=== PATIENT | female | born 1930 | race Caucasian/White ===

== ENCOUNTER 2017-01-28 16:43 | Inpatient (IN) | payer MEDICARE, MEDICAID ==
[2017-01-28] MEDS ORDERED: Sodium Chloride 0.9% 10 ML Syringe FLUSH PRN (17:08)
[2017-01-28] MEDS ORDERED: Sodium Chloride 0.9% 2.5 ML Syringe FLUSH PRN (17:08)
--- NOTE | 2017-01-28 17:10 | EDM.PDOC ---
ED HPI GENERAL MEDICAL PROBLEM - General Chief Complaint: Respiratory Problem Stated Complaint: UNK Time Seen by Provider: 01/28/17 17:00 - History of Present Illness INITIAL COMMENTS - FREE TEXT/NARRATIVE: HISTORY AND PHYSICAL: History of present illness: The patient is an 86-year-old female who resides at [facility] and has a history of Alzheimer's dementia and presents from [place] after having an episode of near fainting/near syncope while on the toilet .It was noted by nursing that she like she was going to faint or pass out and her oxygen level was low at that time and they thought she should be evaluated. Patient cannot offer any history as she is extremely hard of hearing and will not answer questions nor she a good historian. On arrival here she was 78% sat on room air and isn't placed on oxygen. Per the detention they tried to put oxygen on her and she ripped it off. Family is at bedside and state that she is at her baseline mental status and that is not new or different. The patient does respond to the family members questions and voice and answer simple questions. She states she's not having any pain or shortness of breath. She keeps repeatedly asking if she can take the oxygen off. According to the family she is either in the bed or in the wheelchair but is not ambulatory and she has a history of getting frequent UTIs. They state that when she gets a UTI she is more confused and doesn't recognize them but she is currently recognizing them. Further history is unavailable at this time but per the family and detention report she has not had a fever and she has been eating and otherwise appropriate until today. Review of systems: As per history of present illness and below otherwise all systems reviewed and negative. Past medical history: As per history of present illness and as reviewed below otherwise noncontributory. Surgical history: As per history of present illness and as reviewed below otherwise noncontributory. Social history: No reported history of drug or alcohol abuse. Family history: As per history of present illness and as reviewed below otherwise noncontributory. Physical exam: Gen.: Well-developed well-nourished female is very hard of hearing and selectively answers questions as she is able. Vital signs are noted by me and after oxygen was applied, 5 L per simple mask, O2 sat went from 78% to 96%. HEENT: Atraumatic, normocephalic, pupils reactive, negative for conjunctival pallor or scleral icterus, mucous membranes moist, throat clear, neck supple, nontender, trachea midline. Lungs: Clear to auscultation, breath sounds equal bilaterally, chest nontender. There is no work or breathing no stridor or wheezing and no sensory muscle use appreciated Heart: S1S2, regular rate and rhythm no overt murmurs are appreciated Abdomen: Soft, nondistended, bowel sounds are normoactive. There is tenderness in the right upper abdominal area without rebound or guarding Negative for masses or hepatosplenomegaly. Pelvis: Stable nontender. Genitourinary: Deferred. Rectal: Deferred. Extremities: Atraumatic, there is no pedal edema Neurovascular unremarkable. Neuro: Awake, alert, but only answers simple questions and depending on who is asking them will sometimes not answer questions. Full neuro exam is very challenging to the patient's lack of cooperation and inability, sensory grossly unremarkable throughout but again it is difficult to evaluate. Exam nonfocal Diagnostics: EKG CBC CMP lactic acid troponin UA TSH chest x-ray CT scan of the head abdomen and pelvis Therapeutics: IV O2 monitor I discussed with the daughter at bedside the patient's lab tests which include an elevated troponin. I have offered her transferred to [facility] for cardiology care on a more acute basis and intervention as indicated and she is declining that at this time. She says that she would prefer just medical management here and I will informed our hospitalist about this. We are pending at this time her chest x-ray and CAT scan results as well as a urine. Patient is currently stable and is not complaining of anything and keeps trying to take her oxygen off. 1900: Case was discussed with our hospitalist Dr. Garcia accepts the patient for inpatient care. He is aware of the troponin and of my conversation with the daughter and is in agreement. We are currently awaiting the urine results as well as chest x-ray and CT scans. Dr. Garcia will follow up these test results. Impression: Near syncope, new hypoxia, elevated troponin History of dementia Definitive disposition and diagnosis as appropriate pending reevaluation and review of above. - Related Data Allergies Allergy/AdvReac Type Severity Reaction Status Date / Time No Known Allergies Allergy Verified 01/28/17 16:54 Home Meds: Home Meds Acetaminophen [Tylenol Extra Strength] 500 mg PO Q8HR 01/28/17 [History] Aspirin 81 mg PO DAILY 01/28/17 [History] Citalopram Hydrobromide [Celexa] 10 mg PO DAILY 01/28/17 [History] Cyanocobalamin (Vitamin B-12) [Cyanocobalamin Injection] 1,000 mcg IM DAILY 03/04 [History] Docusate Sodium [Colace] 100 mg PO DAILY 01/28/17 [History] Donepezil HCl [Aricept] 10 mg PO DAILY 01/28/17 [History] Folic Acid 1 mg PO DAILY 01/28/17 [History] Magnesium Hydroxide [Milk of Magnesia] 30 ml PO DAILY 01/28/17 [History] Past Medical History HEENT History: Reports: None Cardiovascular History: Reports: None Respiratory History: Reports: None Gastrointestinal History: Reports: None Genitourinary History: Reports: UTI, Recurrent 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: Musculoskeletal History: Reports: Osteoarthritis Neurological History: Reports: Alzheimers Disease, Other (See Below) Other Neuro History: dementia Psychiatric History: Reports: Psychosis, Other (See Below) Other Psychiatric History: conversion disorder Endocrine/Metabolic History: Reports: None Hematologic History: Reports: Anemia Immunologic History: Reports: None Oncologic (Cancer) History: Reports: None Dermatologic History: Reports: None - Infectious Disease History Infectious Disease History: Reports: Chicken Pox, Shingles - Past Surgical History Head Surgeries/Procedures: Reports: None HEENT Surgical History: Reports: None Cardiovascular Surgical History: Reports: None Respiratory Surgical History: Reports: None GI Surgical History: Reports: None Female Surgical History: Reports: None Neurological Surgical History: Reports: None Musculoskeletal Surgical History: Reports: None Social & Family History - Family History Family Medical History: Noncontributory - Tobacco Use Smoking Status *Q: Never Smoker - Caffeine Use Caffeine Use: Reports: None - Recreational Drug Use Recreational Drug Use: No ED ROS GENERAL - Review of Systems Review Of Systems: ROS reveals no pertinent complaints other than HPI. ED EXAM, GENERAL - Physical Exam Exam: See Below (See dictation) Course - Vital Signs Last Recorded V/S: Last Vital Signs Temp 36.4 C 01/28/17 16:54 Pulse 91 01/28/17 16:54 Resp 16 01/28/17 16:54 BP 150/76 H 01/28/17 16:54 Pulse Ox 96 01/28/17 17:13 - Orders/Labs/Meds Orders: Active Orders 24 hr Category Date Time Status Patient Status [ADT] Stat ADT 01/28/17 19:11 Ordered Cardiac Monitoring [RC] . DIRECTED Care 01/28/17 17:08 Active EKG Documentation Completion [RC] STAT Care 01/28/17 17:08 Active Oxygen Therapy, ED [RC] ASDIRECTED Care 01/28/17 17:08 Active Pulse Oximetry [RC] ASDIRECTED Care 01/28/17 17:08 Active Abdomen Pelvis wo Cont [CT] Stat Exams 01/28/17 17:09 Taken Chest 1V Frontal [CR] Stat Exams 01/28/17 17:09 Taken Head wo Cont [CT] Stat Exams 01/28/17 17:09 Taken UA W/MICROSCOPIC [URIN] Stat Lab 01/28/17 17:09 Uncollected Sodium Chloride 0.9% [Saline Flush] Med 01/28/17 17:08 Active 10 ml FLUSH ASDIRECTED PRN Sodium Chloride 0.9% [Saline Flush] Med 01/28/17 17:08 Active 2.5 ml FLUSH ASDIRECTED PRN Saline Lock Insert [OM.PC] Stat Oth 01/28/17 17:08 Ordered Medication Orders Sodium Chloride (Saline Flush) 10 ml FLUSH ASDIRECTED PRN PRN Reason: Keep Vein Open Sodium Chloride (Saline Flush) 2.5 ml FLUSH ASDIRECTED PRN PRN Reason: Keep Vein Open Labs: Laboratory Tests 01/28/17 01/28/17 01/28/17 Range/Units 17:37 17:37 17:37 WBC 8.88 (4.0-11.0) K/uL RBC 4.44 (4.30-5.90) M/uL Hgb 14.9 (12.0-16.0) g/dL Hct 43.0 (36.0-46.0) % MCV 96.8 (80.0-98.0) fL MCH 33.6 H (27.0-32.0) pg MCHC 34.7 (31.0-37.0) g/dL RDW Std Deviation 47.5 (28.0-62.0) fl RDW Coeff of Gen 13 (11.0-15.0) % Plt Count 164 (150-400) K/uL MPV 11.20 (7.40-12.00) fL Neut % (Auto) 77.0 (48.0-80.0) % Lymph % (Auto) 12.2 L (16.0-40.0) % [place] % (Auto) 8.3 (0.0-15.0) % Eos % (Auto) 2.0 (0.0-7.0) % Baso % (Auto) 0.5 (0.0-1.5) % Neut # (Auto) 6.8 H (1.4-5.7) K/uL Lymph # (Auto) 1.1 (0.6-2.4) K/uL [place] # (Auto) 0.7 (0.0-0.8) K/uL Eos # (Auto) 0.2 (0.0-0.7) K/uL Baso # (Auto) 0.0 (0.0-0.1) K/uL Nucleated RBC % 0.0 /100WBC Nucleated RBCs # 0 K/uL Lactate 2.6 H (0.20-2.00) mmol/L Sodium 143 (136-146) mmol/L Potassium 3.9 (3.5-5.1) mmol/L Chloride 107 (98-110) mmol/L Carbon Dioxide 23 (21-31) mmol/L BUN 15 (6.0-23.0) mg/dL Creatinine 0.9 (0.6-1.5) mg/dL Est Cr Clr Drug Dosing 42.78 mL/min Estimated GFR (MDRD) 59.5 ml/min Glucose 136 H (60-110) mg/dL Calcium 9.1 (8.8-10.8) mg/dL Total Bilirubin 0.5 (0.1-1.5) mg/dL AST 22 (5-40) IU/L ALT 20 (8-54) IU/L Alkaline Phosphatase 58 (40-150) Troponin I 0.32 H* (0.0-0.29) NG/ML Total Protein 6.8 (6.0-8.0) g/dL Albumin 3.8 (3.4-4.8) g/dL Globulin 3.0 (2.0-3.5) g/dL Albumin/Globulin Ratio 1.3 (1.3-2.8) TSH 3rd Generation 2.98 (0.47-5.0) uIU/mL Meds: Medications Generic Name Dose Route Start Last Admin Trade Name Freq PRN Reason Stop Dose Admin Sodium Chloride 10 ml 01/28/17 17:08 Saline Flush FLUSH ASDIRECTED PRN Keep Vein Open Sodium Chloride 2.5 ml 01/28/17 17:08 Saline Flush FLUSH ASDIRECTED PRN Keep Vein Open Departure - Departure Time of Disposition: 19:17 Disposition: Admitted As Inpatient 67 Condition: Good Clinical Impression: Syncope, near, Hypoxia, Elevated troponin - Discharge Information Referrals: PCP,None [Primary Care Provider] - Forms: ED Department Discharge - My Orders Last 24 Hours: My Active Orders 01/28/17 17:08 Cardiac Monitoring [RC] . DIRECTED EKG Documentation Completion [RC] STAT Oxygen Therapy, ED [RC] ASDIRECTED Pulse Oximetry [RC] ASDIRECTED Sodium Chloride 0.9% [Saline Flush] 10 ml FLUSH ASDIRECTED PRN Sodium Chloride 0.9% [Saline Flush] 2.5 ml FLUSH ASDIRECTED PRN Saline Lock Insert [OM.PC] Stat 01/28/17 17:09 Abdomen Pelvis wo Cont [CT] Stat Chest 1V Frontal [CR] Stat Head wo Cont [CT] Stat UA W/MICROSCOPIC [URIN] Stat 01/28/17 19:11 Patient Status [ADT] Stat - Assessment/Plan Last 24 Hours: My Active Orders 01/28/17 17:08 Cardiac Monitoring [RC] . DIRECTED EKG Documentation Completion [RC] STAT Oxygen Therapy, ED [RC] ASDIRECTED Pulse Oximetry [RC] ASDIRECTED Sodium Chloride 0.9% [Saline Flush] 10 ml FLUSH ASDIRECTED PRN Sodium Chloride 0.9% [Saline Flush] 2.5 ml FLUSH ASDIRECTED PRN Saline Lock Insert [OM.PC] Stat 01/28/17 17:09 Abdomen Pelvis wo Cont [CT] Stat Chest 1V Frontal [CR] Stat Head wo Cont [CT] Stat UA W/MICROSCOPIC [URIN] Stat 01/28/17 19:11 Patient Status [ADT] Stat
--- NOTE | 2017-01-28 20:03 | PCM.HP ---
H&P History of Present Illness - General Date of Service: 01/28/17 Admit Problem/Dx: Admission Diagnosis/Problem Admission Diagnosis/Problem Syncope Source of Information: Patient - History of Present Illness Initial Comments - Free Text/Narative: She seemed to have a brief period of near syncope at the [place] home . At the time she was also noted to have a room air oxygen saturation of 75% approximately. No problems swallowing no known fever - Related Data Allergies/Adverse Reactions: Allergies Allergy/AdvReac Type Severity Reaction Status Date / Time No Known Allergies Allergy Verified 01/28/17 16:54 Home Medications: Home Meds Acetaminophen [Tylenol Extra Strength] 500 mg PO Q8HR 01/28/17 [History] Aspirin 81 mg PO DAILY 01/28/17 [History] Citalopram Hydrobromide [Celexa] 10 mg PO DAILY 01/28/17 [History] Cyanocobalamin (Vitamin B-12) [Cyanocobalamin Injection] 1,000 mcg IM DAILY 03/04 [History] Docusate Sodium [Colace] 100 mg PO DAILY 01/28/17 [History] Donepezil HCl [Aricept] 10 mg PO DAILY 01/28/17 [History] Folic Acid 1 mg PO DAILY 01/28/17 [History] Magnesium Hydroxide [Milk of Magnesia] 30 ml PO DAILY 01/28/17 [History] Past Medical History HEENT History: Reports: None Cardiovascular History: Reports: None Respiratory History: Reports: None Gastrointestinal History: Reports: None Genitourinary History: Reports: UTI, Recurrent 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: Musculoskeletal History: Reports: Osteoarthritis Neurological History: Reports: Alzheimers Disease, Other (See Below) Other Neuro History: dementia Psychiatric History: Reports: Psychosis, Other (See Below) Other Psychiatric History: conversion disorder Endocrine/Metabolic History: Reports: None Hematologic History: Reports: Anemia Immunologic History: Reports: None Other Oncologic History: prior history of breast cancer treated with lumpectomy Dermatologic History: Reports: None - Infectious Disease History Infectious Disease History: Reports: Chicken Pox, Shingles - Past Surgical History Head Surgeries/Procedures: Reports: None HEENT Surgical History: Reports: None Cardiovascular Surgical History: Reports: None Respiratory Surgical History: Reports: None GI Surgical History: Reports: None Female Surgical History: Reports: None, Other (See Below) (breast lumpectomy for cancer) Neurological Surgical History: Reports: None Musculoskeletal Surgical History: Reports: None Social & Family History - Family History Family Medical History: Noncontributory - Tobacco Use Smoking Status *Q: Never Smoker - Caffeine Use Caffeine Use: Reports: None - Recreational Drug Use Recreational Drug Use: No H&P Review of Systems - Review of Systems: Review Of Systems: See Below General: Denies: Fever Pulmonary: Denies: Cough Cardiovascular: Denies: Chest Pain Gastrointestinal: Denies: Abdominal Pain, Black Stool, Bloody Stool, Hematemesis , Hematochezia Genitourinary: Denies: Dysuria, Hematuria Neurological: Reports: Confusion (chronic) Exam - Exam Exam: See Below - Vital Signs Vital Signs: Last Vital Signs Temp 97.6 F 01/28/17 16:54 Pulse 95 01/28/17 19:54 Resp 19 01/28/17 19:54 BP 148/64 H 01/28/17 19:54 Pulse Ox 94 L 01/28/17 19:54 Weight: 83.733 kg - Exam General: Alert. No: Lethargic HEENT: EOMI Neck: Supple, Trachea Midline Lungs: Clear to Auscultation, Normal Respiratory Effort Cardiovascular: Regular Rate, Regular Rhythm GI/Abdominal Exam: Soft, Non-Tender (Female) Exam: Deferred Rectal (Female) Exam: Deferred Neurological: Cranial Nerves Intact Psychiatric: Alert (she appears frightened; she has hypertonus diffusely and has intermittent RUE tremor at 4-5 Hz; she has clonus at the right wrist noted.) - Patient Data Lab Results Last 24 hrs: Laboratory Results - last 24 hr 01/28/17 Range/Units 19:25 Urine Color YELLOW Urine Appearance CLOUDY Urine pH 6.5 (5.0-8.0) Ur Specific [place] 1.015 (1.001-1.035) Urine Protein NEGATIVE (NEGATIVE) mg/dL Urine Glucose (UA) NEGATIVE (NEGATIVE) mg/dL Urine Ketones NEGATIVE (NEGATIVE) mg/dL Urine Occult Blood SMALL H (NEGATIVE) Urine Nitrite POSITIVE H (NEGATIVE) Urine Bilirubin NEGATIVE (NEGATIVE) Urine Urobilinogen 0.2 (<2.0) EU/dL Ur Leukocyte Esterase LARGE (NEGATIVE) Urine RBC 0-4 (0-2/HPF) Urine WBC TO NUMEROUS TO COUNT H (0-5/HPF) Ur Epithelial Cells OCCASIONAL (NONE-FEW) Urine Bacteria 2+ H (NEGATIVE) Result Diagrams: 01/28/17 17:37 01/28/17 17:37 *Q Meaningful Use (ADM) - VTE *Q VTE Criteria *Q: - Stroke *Q Stroke Criteria *Q: - AMI *Q AMI Criteria *Q: - Problem List (1) Dementia SNOMED Code(s): 66012788 Status: Acute Current Visit: Yes (2) Bone metastases Status: Acute Current Visit: Yes (3) UTI (urinary tract infection) SNOMED Code(s): 65126606 ICD Code: N39.0 - URINARY TRACT INFECTION, SITE NOT SPECIFIED Status: Acute Current Visit: Yes (4) Sepsis SNOMED Code(s): 30716719 ICD Code: A41.9 - SEPSIS, UNSPECIFIED ORGANISM Status: Acute Current Visit: Yes (5) Cholelithiasis SNOMED Code(s): 749540069 ICD Code: K80.20 - CALCULUS OF GALLBLADDER W/O CHOLECYSTITIS W/O OBSTRUCTION Status: Acute Current Visit: Yes (6) Syncope, near SNOMED Code(s): 626033989 ICD Code: R55 - SYNCOPE AND COLLAPSE Status: Acute Current Visit: Yes (7) Hypoxia SNOMED Code(s): 689147650 ICD Code: R09.02 - HYPOXEMIA Status: Acute Current Visit: Yes (8) Elevated troponin SNOMED Code(s): 117947570 ICD Code: R74.8 - ABNORMAL LEVELS OF OTHER SERUM ENZYMES Status: Acute Current Visit: Yes (9) Do not resuscitate Status: Acute Current Visit: Yes Problem List Initiated/Reviewed/Updated: Yes Orders Last 24hrs: Active Orders 24 hr Category Date Time Status Patient Status [ADT] Stat ADT 01/28/17 19:18 Active CULTURE URINE [RM] Stat Lab 01/28/17 19:44 Uncollected Cefepime [Maxipime in D5W 1 GM/50 ML] 1 gm Med 01/28/17 20:00 Ordered Premix Bag 1 bag IV Q8H Medication Orders Cefepime HCl 1 gm/ Premix 50 mls @ 100 mls/hr IV Q8H PEPITO Sodium Chloride (Saline Flush) 10 ml FLUSH ASDIRECTED PRN PRN Reason: Keep Vein Open Sodium Chloride (Saline Flush) 2.5 ml FLUSH ASDIRECTED PRN PRN Reason: Keep Vein Open Assessment/Plan Comment:: 01/28/2017 CT head shows marked atrophy CT abdomen shows possible metastatic disease in the pelvis; this is uncertain. I suspect that she has urosepsis cefepime supportive care I had a detailed discussion with the patient's daughter regarding the diagnoses and specific the elevated troponin and the possibility of bone metastases. She understands that her prognosis is guarded and that she may be in the midst of a myocardial infarction. However, only non aggressive measures are planned. Will not pursue the work u p for possible metastatic disease and will not treat possible IA except medically. DNR/ DNI status confirmed.
[2017-01-28] MEDS ORDERED: Ondansetron 4 MG/2 ML SDV IVPUSH PRN (20:07)
[2017-01-28] MEDS ORDERED: Temazepam 15 MG Cap PO PRN (20:07)
[2017-01-28] MEDS ORDERED: Acetaminophen 325 MG Tab PO PRN (20:07)
[2017-01-28] MEDS: Cefepime 1 GM in Premix Bag 1 BAG IV SCH (20:18)
[2017-01-28] MEDS: Docusate Sodium 100 MG Cap PO SCH ×2 (21:30→21:45)
[2017-01-28] MEDS: Sodium Chloride 0.9% 1,000 ML IV SCH (21:54)
[2017-01-29] MEDS: Cefepime 1 GM in Premix Bag 1 BAG IV SCH (04:17)
[2017-01-29 05:31] LABS: CHLORIDE,CL 111 mmol/L (98-110); SODIUM,NA 140 mmol/L (136-146)
[2017-01-29] MEDS: Docusate Sodium 100 MG Cap PO SCH ×3 (08:21→21:19)
[2017-01-29] MEDS: Donepezil 10 MG Tab PO SCH ×2 (08:22→08:25)
[2017-01-29] MEDS: Folic Acid 1 MG Tab PO SCH ×2 (08:22→08:26)
[2017-01-29] MEDS: Aspirin 81 MG Tab.Chew PO SCH ×2 (08:22→08:26)
[2017-01-29] MEDS: Magnesium Hydroxide 400 MG/5 ML Susp 30 ML Cup PO SCH (08:26)
[2017-01-29] MEDS: Sodium Chloride 0.9% 1,000 ML IV SCH ×2 (08:31→19:56)
[2017-01-29] MEDS ORDERED: CITALOPRAM HYDROBROMIDE 10 MG PO SCH (09:00)
[2017-01-29] MEDS: Citalopram 20 MG Tab PO SCH (09:18)
--- NOTE | 2017-01-29 10:31 | PCM.PN ---
- General Info Date of Service: 01/29/17 Admission Dx/Problem (Free Text): Admission Diagnosis/Problem Admission Diagnosis/Problem Syncope Subjective Update: Sitting up in chair. Has dementia, hard to obtain any ROS. - Patient Data Vitals - Most Recent: Last Vital Signs Temp 98.5 F 01/29/17 08:00 Pulse 83 01/29/17 08:00 Resp 20 01/29/17 08:00 BP 134/78 01/29/17 08:00 Pulse Ox 90 L 01/29/17 08:00 Weight - Most Recent: 83.733 kg I&O - Last 24 Hours: Intake & Output 01/28/17 01/29/17 01/29/17 22:59 06:59 14:59 Intake Total 755 Output Total 371 Balance 384 Lab Results Last 24 Hours: Laboratory Results - last 24 hr 01/28/17 01/29/17 01/29/17 Range/Units 19:25 04:35 04:35 WBC 9.61 (4.0-11.0) K/uL RBC 4.19 L (4.30-5.90) M/uL Hgb 13.9 (12.0-16.0) g/dL Hct 40.4 (36.0-46.0) % MCV 96.4 (80.0-98.0) fL MCH 33.2 H (27.0-32.0) pg MCHC 34.4 (31.0-37.0) g/dL RDW Std Deviation 47.0 (28.0-62.0) fl RDW Coeff of Gen 13 (11.0-15.0) % Plt Count 145 L (150-400) K/uL MPV 11.10 (7.40-12.00) fL Neut % (Auto) 75.3 (48.0-80.0) % Lymph % (Auto) 15.3 L (16.0-40.0) % [place] % (Auto) 8.1 (0.0-15.0) % Eos % (Auto) 1.1 (0.0-7.0) % Baso % (Auto) 0.2 (0.0-1.5) % Neut # (Auto) 7.2 H (1.4-5.7) K/uL Lymph # (Auto) 1.5 (0.6-2.4) K/uL [place] # (Auto) 0.8 (0.0-0.8) K/uL Eos # (Auto) 0.1 (0.0-0.7) K/uL Baso # (Auto) 0.0 (0.0-0.1) K/uL Nucleated RBC % 0.0 /100WBC Nucleated RBCs # 0 K/uL Lactate 1.5 (0.20-2.00) mmol/L Sodium (136-146) mmol/L Potassium (3.5-5.1) mmol/L Chloride (98-110) mmol/L Carbon Dioxide (21-31) mmol/L BUN (6.0-23.0) mg/dL Creatinine (0.6-1.5) mg/dL Est Cr Clr Drug Dosing mL/min Estimated GFR (MDRD) ml/min Glucose (60-110) mg/dL Calcium (8.8-10.8) mg/dL Magnesium (1.5-2.3) mEq/L Total Bilirubin (0.1-1.5) mg/dL AST (5-40) IU/L ALT (8-54) IU/L Alkaline Phosphatase (40-150) Troponin I (0.0-0.29) NG/ML Total Protein (6.0-8.0) g/dL Albumin (3.4-4.8) g/dL Globulin (2.0-3.5) g/dL Albumin/Globulin Ratio (1.3-2.8) Urine Color YELLOW Urine Appearance CLOUDY Urine pH 6.5 (5.0-8.0) Ur Specific [place] 1.015 (1.001-1.035) Urine Protein NEGATIVE (NEGATIVE) mg/dL Urine Glucose (UA) NEGATIVE (NEGATIVE) mg/dL Urine Ketones NEGATIVE (NEGATIVE) mg/dL Urine Occult Blood SMALL H (NEGATIVE) Urine Nitrite POSITIVE H (NEGATIVE) Urine Bilirubin NEGATIVE (NEGATIVE) Urine Urobilinogen 0.2 (<2.0) EU/dL Ur Leukocyte Esterase LARGE (NEGATIVE) Urine RBC 0-4 (0-2/HPF) Urine WBC TO NUMEROUS TO COUNT H (0-5/HPF) Ur Epithelial Cells OCCASIONAL (NONE-FEW) Urine Bacteria 2+ H (NEGATIVE) 01/29/17 Range/Units 04:35 WBC (4.0-11.0) K/uL RBC (4.30-5.90) M/uL Hgb (12.0-16.0) g/dL Hct (36.0-46.0) % MCV (80.0-98.0) fL MCH (27.0-32.0) pg MCHC (31.0-37.0) g/dL RDW Std Deviation (28.0-62.0) fl RDW Coeff of Gen (11.0-15.0) % Plt Count (150-400) K/uL MPV (7.40-12.00) fL Neut % (Auto) (48.0-80.0) % Lymph % (Auto) (16.0-40.0) % [place] % (Auto) (0.0-15.0) % Eos % (Auto) (0.0-7.0) % Baso % (Auto) (0.0-1.5) % Neut # (Auto) (1.4-5.7) K/uL Lymph # (Auto) (0.6-2.4) K/uL [place] # (Auto) (0.0-0.8) K/uL Eos # (Auto) (0.0-0.7) K/uL Baso # (Auto) (0.0-0.1) K/uL Nucleated RBC % /100WBC Nucleated RBCs # K/uL Lactate (0.20-2.00) mmol/L Sodium 140 (136-146) mmol/L Potassium 3.8 (3.5-5.1) mmol/L Chloride 111 H (98-110) mmol/L Carbon Dioxide 19 L (21-31) mmol/L BUN 12 (6.0-23.0) mg/dL Creatinine 0.8 (0.6-1.5) mg/dL Est Cr Clr Drug Dosing 48.39 mL/min Estimated GFR (MDRD) > 60.0 ml/min Glucose 106 (60-110) mg/dL Calcium 8.6 L (8.8-10.8) mg/dL Magnesium 1.5 (1.5-2.3) mEq/L Total Bilirubin 0.6 (0.1-1.5) mg/dL AST 20 (5-40) IU/L ALT 17 (8-54) IU/L Alkaline Phosphatase 51 (40-150) Troponin I 0.80 H* (0.0-0.29) NG/ML Total Protein 6.0 (6.0-8.0) g/dL Albumin 3.4 (3.4-4.8) g/dL Globulin 2.6 (2.0-3.5) g/dL Albumin/Globulin Ratio 1.3 (1.3-2.8) Urine Color Urine Appearance Urine pH (5.0-8.0) Ur Specific [place] (1.001-1.035) Urine Protein (NEGATIVE) mg/dL Urine Glucose (UA) (NEGATIVE) mg/dL Urine Ketones (NEGATIVE) mg/dL Urine Occult Blood (NEGATIVE) Urine Nitrite (NEGATIVE) Urine Bilirubin (NEGATIVE) Urine Urobilinogen (<2.0) EU/dL Ur Leukocyte Esterase (NEGATIVE) Urine RBC (0-2/HPF) Urine WBC (0-5/HPF) Ur Epithelial Cells (NONE-FEW) Urine Bacteria (NEGATIVE) Med Orders - Current: Current Medications Acetaminophen (Tylenol) 650 mg PO Q4H PRN PRN Reason: Pain (Mild 1-3)/fever Aspirin (Aspirin) 81 mg PO DAILY [facility] Last Admin: 01/29/17 08:26 Dose: Not Given Citalopram Hydrobromide (Celexa) 10 mg PO DAILY [facility] Last Admin: 01/29/17 09:18 Dose: 10 mg Docusate Sodium (Colace) 100 mg PO BID [facility] Last Admin: 01/29/17 08:24 Dose: Not Given Donepezil HCl (Aricept) 10 mg PO DAILY [facility] Last Admin: 01/29/17 08:25 Dose: Not Given Folic Acid (Folic Acid) 1 mg PO DAILY [facility] Last Admin: 01/29/17 08:26 Dose: Not Given Sodium Chloride (Normal Saline) 1,000 mls @ 100 mls/hr IV ASDIRECTED [facility] Last Admin: 01/29/17 08:31 Dose: 100 mls/hr Ceftriaxone Sodium/Dextrose 1 (gm/ Premix) 50 mls @ 100 mls/hr IV Q24H [facility] Magnesium Hydroxide (Milk Of Magnesia) 30 ml PO DAILY [facility] Last Admin: 01/29/17 08:26 Dose: 30 ml Ondansetron HCl (Zofran) 4 mg IVPUSH Q4H PRN PRN Reason: Nausea Sodium Chloride (Saline Flush) 10 ml FLUSH ASDIRECTED PRN PRN Reason: Keep Vein Open Sodium Chloride (Saline Flush) 2.5 ml FLUSH ASDIRECTED PRN PRN Reason: Keep Vein Open Temazepam (Restoril) 15 mg PO BEDTIME PRN PRN Reason: Sleep Discontinued Medications Cefepime HCl 1 gm/ Premix 50 mls @ 100 mls/hr IV Q8H [facility] Last Admin: 01/29/17 04:17 Dose: 100 mls/hr Non-Formulary Medication (Citalopram Hydrobromide) 10 mg PO DAILY [facility] Last Admin: 01/29/17 08:25 Dose: Not Given - Exam General: Alert, Cooperative, No Acute Distress. No: Oriented Lungs: Clear to Auscultation, Normal Respiratory Effort Cardiovascular: Regular Rate, Regular Rhythm GI/Abdominal Exam: Normal Bowel Sounds, Soft, Non-Tender, No Organomegaly, No Distention, No Abnormal Bruit, No Mass, Pelvis Stable Extremities: Normal Inspection, Normal Range of Motion, Non-Tender, No Pedal Edema Neurological: No New Focal Deficit - Problem List & Annotations (1) Sepsis SNOMED Code(s): 06773324 Code(s): A41.9 - SEPSIS, UNSPECIFIED ORGANISM Status: Acute Current Visit : Yes (2) UTI (urinary tract infection) SNOMED Code(s): 47354711 Code(s): N39.0 - URINARY TRACT INFECTION, SITE NOT SPECIFIED Status: Acute Current Visit: Yes Qualifiers: Urinary tract infection type: acute cystitis Hematuria presence: without hematuria Qualified Code(s): N30.00 - Acute cystitis without hematuria (3) Bone metastases Status: Acute Current Visit: Yes (4) Elevated troponin SNOMED Code(s): 883299115 Code(s): R74.8 - ABNORMAL LEVELS OF OTHER SERUM ENZYMES Status: Acute Current Visit: Yes (5) Hypoxia SNOMED Code(s): 990364555 Code(s): R09.02 - HYPOXEMIA Status: Acute Current Visit: Yes (6) Syncope, near SNOMED Code(s): 577815658 Code(s): R55 - SYNCOPE AND COLLAPSE Status: Acute Current Visit: Yes (7) Dementia SNOMED Code(s): 81967655 Code(s): F03.90 - UNSPECIFIED DEMENTIA WITHOUT BEHAVIORAL DISTURBANCE Status: Chronic Current Visit: Yes - Problem List Review Problem List Initiated/Reviewed/Updated: Yes - My Orders Last 24 Hours: My Active Orders 01/29/17 15:00 cefTRIAXone [Rocephin in Dextrose,Iso-Osm 1 GM/50 ML] 1 gm Premix Bag 1 bag IV Q24H - Plan Plan:: This 86 year old female admited with near syncope, found to have UTI and elevated troponin. 1. Urosepsis: Sepsis improved/resolved. VS stable, afebrile. Lactate now 1.5 with hydration. Patient is alert. Will change Cefepime to Rocephin. Will await BC and UC, which are still pending. Continue NS 100, patient not eating much and spitting out all pills. 2. Elevated troponin: Palliative care. Daughter has requested this and does not seek to treat/transfer, only comfort measures. Troponin elevated to .80 this morning. Patient denies chest pain. May be related to demand ischemia from hypoxic event and near syncope. 3. Possible metastatic disease: Family requests no further work up of this. 4. Dementia: Continue Aricept. VTE prophylaxis: SCDs Dispo: Possible DC back to [facility] in am, once UC results available.
[2017-01-29] MEDS ORDERED: cefTRIAXone 1 GM in Premix Bag 1 BAG IV SCH (15:00)
--- NOTE | 2017-01-29 16:21 | CT ---
EXAM DATE: 01/28/17 PATIENT'S AGE: 86 Patient: SAURABH CAMPUZANO Facility: [place], [place] Site . Site : 1930 Study: CT Head [id number]/12/2017 6:28:50 PM Ordering Physician: Charlotte Sal Final Report: INDICATION: Pain. Technique: CT head without IV contrast. Comparison: CT head 11/01/2010. Findings: Minimal mucosal thickening in ethmoidal sinuses. Deformity of the upper cervical spine may be related to advanced degenerative change and/or prior trauma. Moderate dilatation of the ventricular system has increased mildly and is greater than the degree of atrophy and could be related to underlying hydrocephalus and is greatest in the lateral ventricles right greater than left. Moderate cerebral atrophy has progressed. Milder cerebellar atrophy. No intracranial hemorrhage, edema or mass effect. Mild to moderate small vessel ischemic disease has progressed. Remainder negative. Impression: No acute intracranial disease. Progression of chronic intracranial disease including increase in ventricular dilatation likely related to a component of hydrocephalus. Progression of atrophy and small vessel ischemic disease. Other findings as above. Please note that all CT scans at this facility use dose modulation, iterative reconstruction, and/or weight-based dosing when appropriate to reduce radiation dose to as low as reasonably achievable. Dictated by Roni Teresa MD @ Jan 28 2017 6:54PM (Electronic Signature) Report Signed by Proxy. [facility]ITAL[facility]
--- NOTE | 2017-01-29 16:22 | CT ---
EXAM DATE: 01/28/17 PATIENT'S AGE: 86 Patient: SAURABH CAMPUZANO Facility: [place], [place] Site . Site : 1930 Study: CT Abdomen/Pelvis [id number]/12/2017 6:36:09 PM Ordering Physician: Charlotte Sal Final Report: INDICATION: Pain. Technique: CT abdomen pelvis without oral IV contrast. Findings: Moderate motion artifact. Marked compression T11 vertebral body may be acute. Marked osteopenia. Moderate anterior subluxation of L5 on S1 due to bilateral pars defects. Scattered degenerative disc disease in the lumbar and thoracic spine. Moderate degenerative arthritis both hips. Moderate vascular calcifications. Atelectasis or scarring in the lung bases few tiny nodules in the right lower lobe difficult to characterize given the significant motion artifact. Multiple focal lucencies involving the pelvic bones more focal than typically seen related to osteopenia and cannot exclude the possibility of infiltrative lesions such as neoplasm. If clinically desired these findings could be correlated to pelvic MRI. Small amount of pericardial fluid. Small stones in the dependent aspect the gallbladder. The left renal pelvis and intrarenal collecting system are slightly dilated with some superimposed parapelvic and cortical cysts in the left kidney. Fluid in the lumbar back posterior subcutaneous tissues. Mild thickening of both adrenal glands consistent with hyperplasia. Mild prominent of the right renal pelvis chronic. Colonic diverticulosis. Hysterectomy. Wall of the sigmoid colon is thickened likely related to underlying diverticulosis. Remainder negative. Impression: 1. Moderate compression involving the T11 vertebral body may be acute. 2. Ill-defined lucency in the skeleton which is more focal and patchy than typically seen related to osteopenia in the pelvic bones raising the suspicion of lucent/lytic lesions and neoplasm. Consider correlation with pelvic MRI to assess the pelvic bones to ensure there are not focal lesions. 3. Moderate motion artifact. 4. Colonic diverticulosis. 5. Hysterectomy. 6. The left internal collecting system and renal pelvis is slightly dilated as is the right renal pelvis. I suspect these findings are chronic. 7. Cholelithiasis there is Other findings as above. Please note that all CT scans at this facility use dose modulation, iterative reconstruction, and/or weight-based dosing when appropriate to reduce radiation dose to as low as reasonably achievable. Dictated by Roni Teresa MD @ Jan 28 2017 7:17PM (Electronic Signature) Report Signed by Proxy. JORGE ALBERTO
--- NOTE | 2017-01-29 16:23 | CR ---
EXAM DATE: 01/28/17 PATIENT'S AGE: 86 Patient: SAURABH CAMPUZANO Facility: [place], [place] Site . Site : 1930 Study: XRay Chest [id number]/12/2017 6:36:13 PM Ordering Physician: Charlotte Sal Final Report: INDICATION: Chest pain shortness of breath TECHNIQUE: Chest radiograph 1 view COMPARISON: 10/30/10 FINDINGS: Cardiovascular and mediastinum: The cardiac silhouette is normal in appearance and size. Mediastinum is within normal limits. Lungs and pleural spaces: Both lungs are unremarkable in appearance with small lung volumes. No sign of pleural effusion. No pneumothorax is seen. Bones and soft tissues: No significant findings. Left axillary dissection clips noted. IMPRESSION: 1. No acute cardiopulmonary disease seen. Dictated by: Ramos Medellin MD @ 01/28/2017 19:12:04 (Electronic Signature) Report Signed by Proxy. JORGE ALBERTO
[2017-01-30 06:06] LABS: CHLORIDE,CL 110 mmol/L (98-110); SODIUM,NA 140 mmol/L (136-146)
[2017-01-30] MEDS: Sodium Chloride 0.9% 1,000 ML IV SCH (06:28)
[2017-01-30] MEDS ORDERED: Albuterol/Ipratropium 3.0-0.5 MG/3 ML Neb Soln NEB ONE (08:51)
[2017-01-30] MEDS: Docusate Sodium 100 MG Cap PO SCH (08:54)
[2017-01-30] MEDS: Citalopram 20 MG Tab PO SCH (08:54)
[2017-01-30] MEDS: Folic Acid 1 MG Tab PO SCH (08:54)
[2017-01-30] MEDS: Donepezil 10 MG Tab PO SCH (08:54)
[2017-01-30] MEDS: Aspirin 81 MG Tab.Chew PO SCH (08:54)
--- NOTE | 2017-01-30 08:54 | PCM.DCSUM1 ---
Discharge Summary - Hospital Course Brief History: This 86-year-old female with pmh of Alzheimer's dementia, who resides at [place] presents from [place] after having an episode of near fainting/ near syncope while on the toilet. It was noted by nursing that she acted like she was going to faint or pass out and her oxygen level was low at that time, approximately 75% and they thought she should be evaluated. On arrival to ED she was 78% sat on room air and no oxygen dependent. Per the long term they tried to put oxygen on her and she ripped it off. Family is at bedside and state that she is at her baseline mental status and that is not new or different. The patient does respond to the family members questions and voice and answer simple questions. She reported no pain or shortness of breath. She keeps repeatedly asking if she can take the oxygen off. According to the family she is either in the bed or in the wheelchair but is not ambulatory and she has a history of getting frequent UTIs. They state that when she gets a UTI she is more confused and doesn't recognize them but she is currently recognizing them. In the ED no leukocytosis noted, lactate was 2.6, BMP WNL, troponin was 0.32, Ua +2 bacteria with too numerous to count WBC, + nitrite and large leukocyte esterase. She was admitted with urosepsis. - Discharge Data Discharge Date: 01/30/17 Discharge Disposition: DC/Tfer to [facility] [place] [facility] Condition: Good - Discharge Diagnosis/Problem(s) (1) Sepsis SNOMED Code(s): 19777044 ICD Code: A41.9 - SEPSIS, UNSPECIFIED ORGANISM Status: Acute (2) UTI (urinary tract infection) SNOMED Code(s): 47361374 ICD Code: N39.0 - URINARY TRACT INFECTION, SITE NOT SPECIFIED Status: Acute Qualifiers: Urinary tract infection type: acute cystitis Hematuria presence: without hematuria Qualified Code(s): N30.00 - Acute cystitis without hematuria (3) Bone metastases Status: Acute (4) Elevated troponin SNOMED Code(s): 021941305 ICD Code: R74.8 - ABNORMAL LEVELS OF OTHER SERUM ENZYMES Status: Acute (5) Hypoxia SNOMED Code(s): 167207596 ICD Code: R09.02 - HYPOXEMIA Status: Acute (6) Syncope, near SNOMED Code(s): 853238492 ICD Code: R55 - SYNCOPE AND COLLAPSE Status: Acute (7) Dementia SNOMED Code(s): 43483332 ICD Code: F03.90 - UNSPECIFIED DEMENTIA WITHOUT BEHAVIORAL DISTURBANCE Status: Chronic - Patient Instructions Diet: Regular Diet as Tolerated Activity: As Tolerated Showering/Bathing: May Shower Notify Provider of: Fever, Increased Pain, Swelling and Redness, Drainage, Nausea and/or Vomiting Other/Special Instructions: PT/OT/ST to evaluate and treat. Oxygen 2 L NC PRN for sats <88% - Discharge Plan Prescriptions/Med Rec: Cefdinir 300 mg PO BID #14 capsule Home Medications: Home Meds Acetaminophen [Tylenol Extra Strength] 1,000 mg PO Q8HR PRN MDD 4000 MG [History] Aspirin 81 mg PO DAILY 01/28/17 [History] Citalopram Hydrobromide [Celexa] 10 mg PO DAILY 01/28/17 [History] Cyanocobalamin (Vitamin B-12) [Cyanocobalamin Injection] 1,000 mcg IM Q30D 01/28 [History] Docusate Sodium [Colace] 100 mg PO DAILY 01/28/17 [History] Donepezil HCl [Aricept] 10 mg PO DAILY 01/28/17 [History] Folic Acid 1 mg PO DAILY 01/28/17 [History] Magnesium Hydroxide [Milk of Magnesia] 30 ml PO Q72H PRN 01/28/17 [History] Acetaminophen [Tylenol Extra Strength] 500 mg PO DAILY MDD 4000 MG 01/29/17 [ History] Cholecalciferol (Vitamin D3) [Vitamin D3] 1,000 units PO DAILY 01/29/17 [History ] Multivitamin with Minerals [Multiple Vitamin] 1 tab PO DAILY 01/29/17 [History] Cefdinir 300 mg PO BID #14 capsule 01/30/17 [Rx] Patient Handouts: Cefdinir capsules, Syncope, [id number] Referrals: Matt Arreguin MD [Physician] - 02/05/17 () - Discharge Summary/Plan Comment DC Time >30 min.: No Discharge Summary/Plan Comment: Discharge Diagnoses: E coli UTI Urosepsis resolved Possible Metastatic disease, unknown source Possible OH, possible demand ischemia Alzheimer's dementia Patricia was admitted and initially treated with Cefepime, which was de-escalated to Rocephin for Urosepsis. No leukocytosis noted during stay and she remained afebrile. Patient remains confused as per baseline and is alert today. E coli resistant to Cipro and Levaquin returned on urine culture. I will send her home today woth Cefdinir 300 mg BID for 7 more days. On admission, troponin was noted to be elevated, it peaked at 0.80 day 2 of admission and then normalized today 0.24. Melvina, daughter and POA was present on admission and declined wanting further work up. No further workup was completed for possible OH or demend ischemia. She was placed on palliative care for possible OH, no new medications started. On CT there were questional lesions in the pelvic bones, possibly metastatic disease, daughter again decline further work up. Today I notified Melvina Glover, daughter of discharge back to [place] and she agrees with this. Patricia is to return to ED or clinic if concerns should arise. Dr. Arreguin will be notified and it will be arranged for follow up in 1 week. - General Info Date of Service: 01/30/17 Admission Dx/Problem (Free Text: Admission Diagnosis/Problem Admission Diagnosis/Problem Syncope Subjective Update: Sitting up in chair, being fed breakfast by nursing. Denies pain. Confused at baseline. unable to get full ROS. Functional Status: Reports: Pain Controlled, Tolerating Diet, Ambulating, Urinating - Review of Systems General: Reports: Fever - Patient Data Vitals - Most Recent: Last Vital Signs Temp 97.4 F 01/30/17 00:00 Pulse 80 01/30/17 00:00 Resp 18 01/30/17 00:00 BP 159/76 H 01/30/17 00:00 Pulse Ox 90 L 01/30/17 00:00 Weight - Most Recent: 83.733 kg I&O - Last 24 hours: Intake & Output 01/29/17 01/30/17 01/30/17 22:59 06:59 14:59 Intake Total 1710 1521 Balance 1710 1521 Lab Results - Last 24 hrs: Laboratory Results - last 24 hr 01/30/17 01/30/17 Range/Units 05:38 05:38 WBC 9.85 (4.0-11.0) K/uL RBC 3.90 L (4.30-5.90) M/uL Hgb 13.1 (12.0-16.0) g/dL Hct 37.4 (36.0-46.0) % MCV 95.9 (80.0-98.0) fL MCH 33.6 H (27.0-32.0) pg MCHC 35.0 (31.0-37.0) g/dL RDW Std Deviation 47.1 (28.0-62.0) fl RDW Coeff of Gen 14 (11.0-15.0) % Plt Count 132 L (150-400) K/uL MPV 11.20 (7.40-12.00) fL Neut % (Auto) 74.0 (48.0-80.0) % Lymph % (Auto) 14.8 L (16.0-40.0) % [place] % (Auto) 8.7 (0.0-15.0) % Eos % (Auto) 1.8 (0.0-7.0) % Baso % (Auto) 0.7 (0.0-1.5) % Neut # (Auto) 7.3 H (1.4-5.7) K/uL Lymph # (Auto) 1.5 (0.6-2.4) K/uL [place] # (Auto) 0.9 H (0.0-0.8) K/uL Eos # (Auto) 0.2 (0.0-0.7) K/uL Baso # (Auto) 0.1 (0.0-0.1) K/uL Nucleated RBC % 0.0 /100WBC Nucleated RBCs # 0 K/uL Sodium 140 (136-146) mmol/L Potassium 3.5 (3.5-5.1) mmol/L Chloride 110 (98-110) mmol/L Carbon Dioxide 20 L (21-31) mmol/L BUN 13 (6.0-23.0) mg/dL Creatinine 0.8 (0.6-1.5) mg/dL Est Cr Clr Drug Dosing 48.39 mL/min Estimated GFR (MDRD) > 60.0 ml/min Glucose 106 (60-110) mg/dL Calcium 8.3 L (8.8-10.8) mg/dL Troponin I 0.24 (0.0-0.29) NG/ML USHA Results - Last 24 hrs: Microbiology 01/28/17 19:25 Urine Culture - Final Urine, Quick Cath (In-Out) Escherichia Coli Normal Urogenital Geri 01/28/17 20:37 Aerobic Blood Culture - Preliminary Blood NO GROWTH AFTER 1 DAY Anaerobic Blood Culture - Preliminary NO GROWTH AFTER 1 DAY Med Orders - Current: Current Medications Acetaminophen (Tylenol) 650 mg PO Q4H PRN PRN Reason: Pain (Mild 1-3)/fever Aspirin (Aspirin) 81 mg PO DAILY [facility] Last Admin: 01/29/17 08:26 Dose: Not Given Citalopram Hydrobromide (Celexa) 10 mg PO DAILY [facility] Last Admin: 01/29/17 09:18 Dose: 10 mg Docusate Sodium (Colace) 100 mg PO BID [facility] Last Admin: 01/29/17 21:19 Dose: Not Given Donepezil HCl (Aricept) 10 mg PO DAILY [facility] Last Admin: 01/29/17 08:25 Dose: Not Given Folic Acid (Folic Acid) 1 mg PO DAILY [facility] Last Admin: 01/29/17 08:26 Dose: Not Given Sodium Chloride (Normal Saline) 1,000 mls @ 100 mls/hr IV ASDIRECTED [facility] Last Admin: 01/30/17 06:28 Dose: 100 mls/hr Ceftriaxone Sodium/Dextrose 1 (gm/ Premix) 50 mls @ 100 mls/hr IV Q24H [facility] Last Admin: 01/29/17 14:02 Dose: 100 mls/hr Magnesium Hydroxide (Milk Of Magnesia) 30 ml PO DAILY [facility] Last Admin: 01/29/17 08:26 Dose: 30 ml Ondansetron HCl (Zofran) 4 mg IVPUSH Q4H PRN PRN Reason: Nausea Sodium Chloride (Saline Flush) 10 ml FLUSH ASDIRECTED PRN PRN Reason: Keep Vein Open Sodium Chloride (Saline Flush) 2.5 ml FLUSH ASDIRECTED PRN PRN Reason: Keep Vein Open Temazepam (Restoril) 15 mg PO BEDTIME PRN PRN Reason: Sleep Discontinued Medications Albuterol/Ipratropium (Duoneb 3.0-0.5 Mg/3 Ml) 3 ml NEB ONETIME ONE Stop: 01/30/17 08:52 Cefepime HCl 1 gm/ Premix 50 mls @ 100 mls/hr IV Q8H [facility] Last Admin: 01/29/17 04:17 Dose: 100 mls/hr Non-Formulary Medication (Citalopram Hydrobromide) 10 mg PO DAILY [facility] Last Admin: 01/29/17 08:25 Dose: Not Given - Exam General: Reports: Alert, Cooperative, No Acute Distress. Denies: Oriented Lungs: Reports: Clear to Auscultation (sat on RA at bedside 94), Normal Respiratory Effort Cardiovascular: Reports: Regular Rate, Regular Rhythm GI/Abdominal Exam: Normal Bowel Sounds, Soft, Non-Tender, No Organomegaly, No Distention, No Abnormal Bruit, No Mass, Pelvis Stable Extremities: Normal Inspection, Normal Range of Motion, Non-Tender, No Pedal Edema, Normal Capillary Refill Neurological: Reports: No New Focal Deficit Psy/Mental Status: Reports: Alert, Normal Affect, Normal Mood *Q Meaningful Use (DIS) - VTE *Q VTE Criteria *Q: - Stroke *Q Stroke Criteria *Q: - AMI *Q AMI Criteria *Q:
[2017-01-30] MEDS: Magnesium Hydroxide 400 MG/5 ML Susp 30 ML Cup PO SCH (08:55)
== END 2017-01-30 12:45 | DRG 871 ==
LOC: MW.ED 16:43 → MW.MS 19:11
PROVIDERS: ADMIT Family Medicine; ATTEND Family Medicine
DX: A41.9 Sepsis, unspecified organism (principal); I21.9 Acute myocardial infarction, unspecified; N30.00 Acute cystitis without hematuria; C79.9 Secondary malignant neoplasm of unspecified site; R79.89 Other specified abnormal findings of blood chemistry; C79.51 Secondary malignant neoplasm of bone; B96.20 Unspecified Escherichia coli [E. coli] as the cause of diseases classified elsewhere; R74.8 Abnormal levels of other serum enzymes; R09.02 Hypoxemia; R55 Syncope and collapse; G30.9 Alzheimer's disease, unspecified; F02.80 Dementia in other diseases classified elsewhere, unspecified severity, without behavioral disturbance, psychotic disturbance, mood disturbance, and anxiety; Z79.899 Other long term (current) drug therapy; Z51.5 Encounter for palliative care; Z85.3 Personal history of malignant neoplasm of breast; K80.20 Calculus of gallbladder without cholecystitis without obstruction; Z66 Do not resuscitate
CPT/HCPCS: 36415; 70450; 70450-26; 71010; 71010-26; 74176; 74176-26; 80048; 80053; 81001; 83605; 83735; 84443; 84484; 85025; 87040; 87086; 87088; 87186; 93005; 94640; 99284; 99285-25; A9270-GY; J0692; J0696; J7040

== ENCOUNTER 2019-03-27 20:33 | Emergency (ER) | payer MEDICARE, MEDICAID ==
[2019-03-27 22:15] LABS: BLOOD UREA NITROGEN,BUN 18 mg/dL (7.0-18.0); CARBON DIOXIDE,CO2 25.7 mmol/L (21.0-32.0); CHLORIDE,CL 105 mmol/L (98-107); GLUCOSE RANDOM 120 mg/dL (74-106); POTASSIUM,K 4.1 mmol/L (3.5-5.1); SODIUM,NA 142 mmol/L (136-145)
--- NOTE | 2019-03-27 23:12 | CR ---
INDICATION: Fever TECHNIQUE: Chest radiograph 1 view COMPARISON: 01/28/2017 FINDINGS: Mediastinum: The mediastinum is normal in appearance. The heart silhouette is normal in size and morphology. Lung: Both lungs are unremarkable in appearance. The right apex is obscured by the patient`s chin and cannot be evaluated. The No sign of pleural effusion seen. No pneumothorax is identified. Bone and Soft tissue: Unremarkable for age. Left axillary surgical dissection clips are present without change. IMPRESSION: 1. No acute cardiopulmonary disease is seen. Dictated by Ramos Medellin MD @ 03/27/2019 11:10:15 PM Dictated by: Ramos Medellin MD @ 03/27/2019 23:10:18 (Electronically Signed)
--- NOTE | 2019-03-28 00:06 | EDM.PDOC ---
ED HPI GENERAL MEDICAL PROBLEM - General Chief Complaint: Skin Complaint Stated Complaint: FEVER Time Seen by Provider: 03/27/19 21:02 Source of Information: Reports: Family History Limitations: Reports: No Limitations - History of Present Illness INITIAL COMMENTS - FREE TEXT/NARRATIVE: 89-year-old female presents the emergency room after being told she had a rash and a fever from the long-term. Has dementia and is unable to give a history Onset: Today Duration: Hour(s): Location: Reports: Upper Extremity, Left, Upper Extremity, Right Severity: Mild Improves with: Reports: None Worsens with: Reports: None Associated Symptoms: Reports: No Other Symptoms, Rash (Rash history no rash appears at this time) - Related Data Allergies Allergy/AdvReac Type Severity Reaction Status Date / Time No Known Allergies Allergy Verified 03/27/19 20:42 Home Meds: Home Meds Acetaminophen [Tylenol Extra Strength] 1,000 mg PO Q8HR PRN MDD 4000 MG [History] Aspirin 81 mg PO DAILY 01/28/17 [History] Citalopram Hydrobromide [Celexa] 10 mg PO DAILY 01/28/17 [History] Cyanocobalamin (Vitamin B-12) [Cyanocobalamin Injection] 1,000 mcg IM Q30D 01/28 [History] Docusate Sodium [Colace] 100 mg PO DAILY 01/28/17 [History] Donepezil HCl [Aricept] 10 mg PO DAILY 01/28/17 [History] Folic Acid 1 mg PO DAILY 01/28/17 [History] Magnesium Hydroxide [Milk of Magnesia] 30 ml PO Q72H PRN 01/28/17 [History] Acetaminophen [Tylenol Extra Strength] 500 mg PO DAILY MDD 4000 MG 01/29/17 [ History] Cholecalciferol (Vitamin D3) [Vitamin D3] 1,000 units PO DAILY 01/29/17 [History ] Multivitamin with Minerals [Multiple Vitamin] 1 tab PO DAILY 01/29/17 [History] Cefdinir 300 mg PO BID #14 capsule 01/30/17 [Rx] Past Medical History HEENT History: Reports: None Cardiovascular History: Reports: None Respiratory History: Reports: None Gastrointestinal History: Reports: None Genitourinary History: Reports: UTI, Recurrent 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: Musculoskeletal History: Reports: Osteoarthritis Other Musculoskeletal History: weakness Neurological History: Reports: Alzheimers Disease, Other (See Below) Other Neuro History: dementia Psychiatric History: Reports: Psychosis, Other (See Below) Other Psychiatric History: conversion disorder Endocrine/Metabolic History: Reports: None Hematologic History: Reports: Anemia Immunologic History: Reports: None Oncologic (Cancer) History: Reports: None Other Oncologic History: prior history of breast cancer treated with lumpectomy Dermatologic History: Reports: None - Infectious Disease History Infectious Disease History: Reports: Chicken Pox, Shingles - Past Surgical History Head Surgeries/Procedures: Reports: None HEENT Surgical History: Reports: None Cardiovascular Surgical History: Reports: None Respiratory Surgical History: Reports: None GI Surgical History: Reports: None Female Surgical History: Reports: None, Other (See Below) Neurological Surgical History: Reports: None Musculoskeletal Surgical History: Reports: None Social & Family History - Family History Family Medical History: Noncontributory - Tobacco Use Smoking Status *Q: Never Smoker - Caffeine Use Caffeine Use: Reports: None Other Caffeine Use: SHAZIA - Recreational Drug Use Recreational Drug Use: No ED ROS GENERAL - Review of Systems Review Of Systems: Comprehensive ROS is negative, except as noted in HPI. Constitutional: Reports: No Symptoms HEENT: Reports: No Symptoms Respiratory: Reports: No Symptoms Cardiovascular: Reports: No Symptoms Endocrine: Reports: No Symptoms GI/Abdominal: Reports: No Symptoms : Reports: No Symptoms Musculoskeletal: Reports: No Symptoms Skin: Reports: Rash (Reported by long-term) ED EXAM, SKIN/RASH Exam: See Below Exam Limited By: No Limitations General Appearance: Alert, WD/WN, No Apparent Distress Ears: Normal External Exam, Normal Canal, Normal TMs Nose: Normal Inspection, Normal Mucosa Throat/Mouth: Normal Inspection, Normal Oropharynx Head: Atraumatic, Normocephalic Neck: Normal Inspection Respiratory/Chest: No Respiratory Distress, Lungs Clear, No Accessory Muscle Use Cardiovascular: Normal Peripheral Pulses, Regular Rate, Rhythm, No JVD GI/Abdominal: Normal Bowel Sounds, Soft, Non-Tender (Female) Exam: Deferred Rectal (Female) Exam: Deferred Back Exam: Normal Inspection, Full Range of Motion Extremities: Normal Inspection Neurological: Alert, Oriented, CN II-XII Intact Psychiatric: Normal Affect, Normal Mood Skin: Warm, Dry, Intact, No Rash Lymphatic: No Adenopathy Course - Vital Signs Last Recorded V/S: Last Vital Signs Temp 99.1 F 03/27/19 22:00 Pulse 82 03/27/19 22:00 Resp 18 03/27/19 22:00 BP 153/81 H 03/27/19 22:00 Pulse Ox 94 L 03/27/19 22:00 - Orders/Labs/Meds Orders: Active Orders 24 hr Category Date Time Status CULTURE STREP A CONFIRMATION [RM] Stat Lab 03/27/19 22:10 Results STREP SCRN A RAPID W CULT CONF [RM] Stat Lab 03/27/19 22:10 Results UA RFX USHA AND CULT IF INDIC [URIN] Stat Lab 03/27/19 21:13 Ordered Labs: Laboratory Tests 03/27/19 03/27/19 Range/Units 21:44 21:44 WBC 5.88 (4.0-11.0) K/uL RBC 4.64 (4.30-5.90) M/uL Hgb 15.5 (12.0-16.0) g/dL Hct 44.2 (36.0-46.0) % MCV 95.3 (80.0-98.0) fL MCH 33.4 H (27.0-32.0) pg MCHC 35.1 (31.0-37.0) g/dL RDW Std Deviation 47.1 (28.0-62.0) fl RDW Coeff of Gen 14 (11.0-15.0) % Plt Count 149 L (150-400) K/uL MPV 11.60 (7.40-12.00) fL Nucleated RBC % 0.0 /100WBC Nucleated RBCs # 0 K/uL Sodium 142 (136-145) mmol/L Potassium 4.1 (3.5-5.1) mmol/L Chloride 105 (98-107) mmol/L Carbon Dioxide 25.7 (21.0-32.0) mmol/L BUN 18 (7.0-18.0) mg/dL Creatinine 1.0 (0.6-1.0) mg/dL Est Cr Clr Drug Dosing TNP Estimated GFR (MDRD) 52.3 ml/min Glucose 120 H (74-106) mg/dL Calcium 9.5 (8.5-10.1) mg/dL Total Bilirubin 0.6 (0.2-1.0) mg/dL AST 16 (15-37) IU/L ALT 21 (14-63) IU/L Alkaline Phosphatase 61 (46-116) U/L Total Protein 7.1 (6.4-8.2) g/dL Albumin 3.7 (3.4-5.0) g/dL Globulin 3.4 (2.6-4.0) g/dL Albumin/Globulin Ratio 1.1 (0.9-1.6) Departure - Departure Time of Disposition: 00:09 Disposition: Home, Self-Care 01 Condition: Good Clinical Impression: Encounter for well adult exam without abnormal findings - Discharge Information Referrals: Matt Arreguin MD [Primary Care Provider] - Forms: ED Department Discharge Sepsis Event Note - Evaluation Sepsis Screening Result: No Definite Risk - Focused Exam Vital Signs: Vital Signs Temp Pulse Resp BP Pulse Ox 03/27/19 22:00 99.1 F 82 18 153/81 H 94 L 03/27/19 20:48 158/137 H 03/27/19 20:42 98.6 F 88 20 149/122 H 98 Date Exam was Performed: 03/28/19 Time Exam was Performed: 00:06 - My Orders Last 24 Hours: My Active Orders 03/27/19 21:13 UA RFX USHA AND CULT IF INDIC [URIN] Stat 03/27/19 22:10 CULTURE STREP A CONFIRMATION [RM] Stat STREP SCRN A RAPID W CULT CONF [] Stat - Assessment/Plan Last 24 Hours: My Active Orders 03/27/19 21:13 UA RFX USHA AND CULT IF INDIC [URIN] Stat 03/27/19 22:10 CULTURE STREP A CONFIRMATION [RM] Stat STREP SCRN A RAPID W CULT CONF [] Stat
== END 2019-03-28 00:30 | disposition home or self-care (01) ==
LOC: MW.ED 20:33
DX: R50.9 Fever, unspecified (principal); R21 Rash and other nonspecific skin eruption; G30.9 Alzheimer's disease, unspecified; F02.80 Dementia in other diseases classified elsewhere, unspecified severity, without behavioral disturbance, psychotic disturbance, mood disturbance, and anxiety; Z79.82 Long term (current) use of aspirin; Z79.899 Other long term (current) drug therapy
CPT/HCPCS: 36415; 71045; 71045-26; 80053; 85027; 87081; 87804; 87880-QW; 99282; 99284-25

== ENCOUNTER 2019-09-03 15:18 | Observation (INO) | payer MEDICARE, MEDICAID ==
--- NOTE | 2019-09-03 15:32 | EDM.PDOC ---
ED HPI GENERAL MEDICAL PROBLEM - General Chief Complaint: Respiratory Problem Stated Complaint: THROWING UP Time Seen by Provider: 09/03/19 15:20 Source of Information: Reports: Patient History Limitations: Reports: No Limitations - History of Present Illness INITIAL COMMENTS - FREE TEXT/NARRATIVE: HISTORY AND PHYSICAL: History of present illness: Patient is an 89-year-old female who presents to the emergency room with complaints of possible aspiration pneumonia. Patient has a past medical history of dementia, Alzheimer's disease, recurrent UTIs, anemia and osteoporosis. She is accompanied today by her daughter who states she has not seen her in several weeks due to COVID, but today's respiratory status is not her normal. According to care home staff, today at lunch the patient had 3 emesis while trying to eat her food. Shortly after she developed wet noisy sounding respirations and were concerned that she has an aspiration pneumonia. Patient does not answer questions appropriately due to her baseline dementia/Alzheimer's disease. She is awake and sitting in a wheelchair but does have drool coming from her mouth. She is unable to tell me if she feels like there is something stuck in her throat. Patient denies any fever, chills, headache, change in vision, syncope or near syncope. Denies any chest pain, back pain, shortness of breath or cough. Denies any abdominal pain, nausea, vomiting, diarrhea, constipation or dysuria. Has not noted any blood in urine or stool. Patient has been eating and drinking appropriately. Review of systems: As per history of present illness and below otherwise all systems reviewed and negative. Past medical history: As per history of present illness and as reviewed below otherwise noncontributory. Surgical history: As per history of present illness and as reviewed below otherwise noncontributory. Social history: See social history for further information Family history: As per history of present illness and as reviewed below otherwise noncontributory. Physical exam: General: Well-developed and well-nourished 89-year-old female. Alert and appropriate for self - history of dementia/Alz. Nontoxic in appearance although does have some mild respiratory retractions. Vital signs have been reviewed by me. Daughter is at bedside assisting with patient interview/care. HEENT: Atraumatic, normocephalic, pupils equal and reactive bilaterally, negative for conjunctival pallor or scleral icterus, mucous membranes moist, TMs normal bilaterally, neck supple, nontender, trachea midline. No drooling or trismus noted. No meningeal signs. No hot potato voice noted. Lungs: Audible noisy breath sounds. Coarse lung sounds throughout, breath sounds equal bilaterally, chest nontender. Mild retractions noted. Heart: S1S2, regular rate and rhythm without overt murmur Abdomen: Soft, nondistended, nontender. Negative for masses or hepatosplenomegaly. Negative for costovertebral tenderness. Pelvis: Stable nontender. Skin: Intact, warm, dry. No lesions or rashes noted. Extremities: Atraumatic, moves all extremities per self without difficulty or deficits, negative for cords or calf pain. Neurovascular unremarkable. Neuro: Awake, alert, oriented. Cranial nerves II through XII unremarkable. Cerebellum unremarkable. Motor and sensory unremarkable throughout. Exam nonfocal. Notes: Attempted to get a deeper look inside the throat as I am suspicious for a food bolus. Patient is uncooperative with physical exam even with assistance of nursing staff. I did page the general surgeon, Dr. Cummings about this patient at 1955. He will come see this patient after clinic is completed. Patients oxygen saturation has improved; she is starting to cough and try to clear throat secretions. X-ray shows possible left perihilar bronchitis. [id number]: Dr Cummings here to evaluate patient. Dr Young was consulted on this case and agreeable to accepting this patient for observation admission with telemetry. Patient has been sating 88-92% on room air as she keeps removing her nasal canula per self. Does not tolerate blow-by oxygen. Vital signs otherwise unremarkable. Diagnostics: CBC, CMP, lactate, chest x-ray, blood cultures x2 Therapeutics: Zainab Maria, NS, [employer] Impression: Aspiration Pneumonia Plan: Observation admission with telemetry Definitive disposition and diagnosis as appropriate pending reevaluation and review of above. Onset: Today - Related Data Allergies Allergy/AdvReac Type Severity Reaction Status Date / Time No Known Allergies Allergy Verified 09/03/19 16:16 Home Meds: Home Meds Acetaminophen [Tylenol Extra Strength] 1,000 mg PO Q8HR PRN MDD 4000 MG 01/28/17 [History] Aspirin 81 mg PO DAILY 01/28/17 [History] Cyanocobalamin (Vitamin B-12) [Cyanocobalamin Injection] 1,000 mcg IM Q30D 01/28/17 [History] Docusate Sodium [Colace] 100 mg PO DAILY 01/28/17 [History] Donepezil HCl [Aricept] 10 mg PO DAILY 01/28/17 [History] Folic Acid 1 mg PO DAILY 01/28/17 [History] Magnesium Hydroxide [Milk of Magnesia] 30 ml PO Q72H PRN 01/28/17 [History] Acetaminophen [Tylenol Extra Strength] 500 mg PO DAILY MDD 4000 MG 01/29/17 [History] Cholecalciferol (Vitamin D3) [Vitamin D3] 1,000 units PO DAILY 01/29/17 [History] Multivitamin with Minerals [Multiple Vitamin] 1 tab PO DAILY 01/29/17 [History] Albuterol Sulfate 3 ml INH ASDIRECTED PRN 09/03/19 [History] Carbamide Peroxide [Debrox] 3 drop EARBOTH ASDIRECTED 09/03/19 [History] Menthol/Zinc Oxide [Gold Berman Medicated Body Powdr] 113 gm TOP ASDIRECTED 09/03/19 [History] Mirtazapine [Remeron] 15 mg PO DAILY 09/03/19 [History] polyethylene glycoL 3350 [MiraLAX] 17 gm PO DAILY 09/03/19 [History] Past Medical History HEENT History: Reports: None Cardiovascular History: Reports: None Respiratory History: Reports: None Gastrointestinal History: Reports: None Genitourinary History: Reports: UTI, Recurrent 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: Musculoskeletal History: Reports: Osteoarthritis Other Musculoskeletal History: weakness Neurological History: Reports: Alzheimers Disease, Other (See Below) Other Neuro History: dementia Psychiatric History: Reports: Psychosis, Other (See Below) Other Psychiatric History: conversion disorder Endocrine/Metabolic History: Reports: None Hematologic History: Reports: Anemia Immunologic History: Reports: None Oncologic (Cancer) History: Reports: None Other Oncologic History: prior history of breast cancer treated with lumpectomy Dermatologic History: Reports: None - Infectious Disease History Infectious Disease History: Reports: Chicken Pox, Shingles - Past Surgical History Head Surgeries/Procedures: Reports: None HEENT Surgical History: Reports: None Cardiovascular Surgical History: Reports: None Respiratory Surgical History: Reports: None GI Surgical History: Reports: None Female Surgical History: Reports: None, Other (See Below) Neurological Surgical History: Reports: None Musculoskeletal Surgical History: Reports: None Social & Family History - Family History Family Medical History: Noncontributory - Caffeine Use Caffeine Use: Reports: None Other Caffeine Use: SHAZIA ED ROS GENERAL - Review of Systems Review Of Systems: Comprehensive ROS is negative, except as noted in HPI. ED EXAM, GENERAL - Physical Exam Exam: See Below (See dictation) Course - Orders/Labs/Meds Orders: Active Orders 24 hr Category Date Time Status Communication Order [RC] STAT Care 09/03/19 16:04 Active RT Aerosol Therapy [RC] ASDIRECTED Care 09/03/19 16:04 Active CULTURE BLOOD [BC] Stat Lab 09/03/19 16:00 Received CULTURE BLOOD [BC] Stat Lab 09/03/19 16:26 Received UA RFX USHA AND CULT IF INDIC [URIN] Stat Lab 09/03/19 15:36 Ordered Sodium Chloride 0.9% [Saline Flush] Med 09/03/19 15:36 Active 10 ml FLUSH ASDIRECTED PRN Sodium Chloride 0.9% [Saline Flush] Med 09/03/19 15:36 Active 2.5 ml FLUSH ASDIRECTED PRN Blood Culture x2 Reflex Set [OM.PC] Stat Oth 09/03/19 15:36 Ordered Saline Lock Insert [OM.PC] Stat Oth 09/03/19 15:36 Ordered Medication Orders Sodium Chloride (Normal Saline) 1,000 mls @ 125 mls/hr IV ASDIRECTED PEPITO Sodium Chloride (Saline Flush) 10 ml FLUSH ASDIRECTED PRN PRN Reason: Keep Vein Open Sodium Chloride (Saline Flush) 2.5 ml FLUSH ASDIRECTED PRN PRN Reason: Keep Vein Open Labs: Laboratory Tests 09/03/19 09/03/19 09/03/19 Range/Units 16:00 16:00 16:00 WBC 7.21 (4.0-11.0) K/uL RBC 4.90 (4.30-5.90) M/uL Hgb 16.5 H (12.0-16.0) g/dL Hct 47.9 H (36.0-46.0) % MCV 97.8 (80.0-98.0) fL MCH 33.7 H (27.0-32.0) pg MCHC 34.4 (31.0-37.0) g/dL RDW Std Deviation 48.9 (28.0-62.0) fl RDW Coeff of Gen 14 (11.0-15.0) % Plt Count 182 (150-400) K/uL MPV 11.80 (7.40-12.00) fL Neut % (Auto) 74.9 (48.0-80.0) % Lymph % (Auto) 17.3 (16.0-40.0) % Marshall % (Auto) 6.0 (0.0-15.0) % Eos % (Auto) 1.4 (0.0-7.0) % Baso % (Auto) 0.4 (0.0-1.5) % Neut # (Auto) 5.4 (1.4-5.7) K/uL Lymph # (Auto) 1.3 (0.6-2.4) K/uL Marshall # (Auto) 0.4 (0.0-0.8) K/uL Eos # (Auto) 0.1 (0.0-0.7) K/uL Baso # (Auto) 0.0 (0.0-0.1) K/uL Nucleated RBC % 0.0 /100WBC Nucleated RBCs # 0 K/uL Lactate 1.7 (0.20-2.00) mmol/L Sodium 141 (136-145) mmol/L Potassium 3.9 (3.5-5.1) mmol/L Chloride 103 (98-107) mmol/L Carbon Dioxide 28.0 (21.0-32.0) mmol/L BUN 12 (7.0-18.0) mg/dL Creatinine 0.9 (0.6-1.0) mg/dL Est Cr Clr Drug Dosing 40.45 mL/min Estimated GFR (MDRD) 59.1 ml/min Glucose 141 H (74-106) mg/dL Calcium 9.6 (8.5-10.1) mg/dL Total Bilirubin 0.4 (0.2-1.0) mg/dL AST 22 (15-37) IU/L ALT 20 (14-63) IU/L Alkaline Phosphatase 67 (46-116) U/L Total Protein 7.6 (6.4-8.2) g/dL Albumin 3.9 (3.4-5.0) g/dL Globulin 3.7 (2.6-4.0) g/dL Albumin/Globulin Ratio 1.1 (0.9-1.6) Meds: Medications Generic Name Dose Route Start Last Admin Trade Name Robby PRN Reason Stop Dose Admin Sodium Chloride 1,000 mls @ 125 mls/hr 09/03/19 17:45 Normal Saline IV ASDIRECTED PEPITO Sodium Chloride 10 ml 09/03/19 15:36 Saline Flush FLUSH ASDIRECTED PRN Keep Vein Open Sodium Chloride 2.5 ml 09/03/19 15:36 Saline Flush FLUSH ASDIRECTED PRN Keep Vein Open Discontinued Medications Generic Name Dose Route Start Last Admin Trade Name Robby PRN Reason Stop Dose Admin Albuterol/Ipratropium 3 ml 09/03/19 16:04 09/03/19 16:23 Duoneb 3.0-0.5 Mg/3 Ml NEB 09/03/19 16:05 3 ml ONETIME ONE Administration Sodium Chloride 1,000 mls @ 125 mls/hr 09/03/19 17:15 Normal Saline IV ASDIRECTED PEPITO Sodium Chloride 1,000 mls @ 125 mls/hr 09/03/19 17:45 Normal Saline IV ASDIRECTED PEPITO Ampicillin Sodium/Sulbactam 50 mls @ 150 mls/hr 09/03/19 17:37 Sodium 1.5 gm/ Sodium Chloride IV 09/03/19 17:56 ONETIME ONE Ampicillin Sodium/Sulbactam 50 mls @ 150 mls/hr 09/03/19 17:45 Sodium 1.5 gm/ Sodium Chloride IV 09/03/19 18:04 ONETIME ONE Departure - Departure Time of Disposition: 18:08 Disposition: Refer to Observation Clinical Impression: Aspiration pneumonia Qualifiers: Aspiration pneumonia type: unspecified Laterality: left Lung location: unspecified part of lung Qualified Code(s): J69.0 - Pneumonitis due to inh alation of food and vomit - Discharge Information - My Orders Last 24 Hours: My Active Orders 09/03/19 15:36 UA RFX USHA AND CULT IF INDIC [URIN] Stat Sodium Chloride 0.9% [Saline Flush] 10 ml FLUSH ASDIRECTED PRN Sodium Chloride 0.9% [Saline Flush] 2.5 ml FLUSH ASDIRECTED PRN Blood Culture x2 Reflex Set [OM.PC] Stat Saline Lock Insert [OM.PC] Stat 09/03/19 16:00 CULTURE BLOOD [BC] Stat 09/03/19 16:04 Communication Order [RC] STAT RT Aerosol Therapy [RC] ASDIRECTED 09/03/19 16:26 CULTURE BLOOD [BC] Stat - Assessment/Plan Last 24 Hours: My Active Orders 09/03/19 15:36 UA RFX USHA AND CULT IF INDIC [URIN] Stat Sodium Chloride 0.9% [Saline Flush] 10 ml FLUSH ASDIRECTED PRN Sodium Chloride 0.9% [Saline Flush] 2.5 ml FLUSH ASDIRECTED PRN Blood Culture x2 Reflex Set [OM.PC] Stat Saline Lock Insert [OM.PC] Stat 09/03/19 16:00 CULTURE BLOOD [BC] Stat 09/03/19 16:04 Communication Order [RC] STAT RT Aerosol Therapy [RC] ASDIRECTED 09/03/19 16:26 CULTURE BLOOD [BC] Stat
[2019-09-03] MEDS ORDERED: Sodium Chloride 0.9% 2.5 ML Syringe FLUSH PRN (15:36)
[2019-09-03] MEDS ORDERED: Sodium Chloride 0.9% 10 ML Syringe FLUSH PRN (15:36)
[2019-09-03] MEDS ORDERED: Albuterol/Ipratropium 3.0-0.5 MG/3 ML Neb Soln NEB ONE (16:04)
[2019-09-03 16:36] LABS: POTASSIUM,K 3.9 mmol/L (3.5-5.1)
--- NOTE | 2019-09-03 16:53 | CR ---
Chest: Portable view of the chest was obtained. Comparison: No previous chest imaging is available. Slight increased density within left perihilar region is seen. Focal bronchitis is possible. Lungs otherwise are clear. Heart size and mediastinum are normal. Axillary surgical clips are seen on the left side. Degenerative change is noted within both shoulders. Impression: 1. Possible left perihilar bronchitis. Please correlate with the patient's symptoms. 2. Other findings which are nonacute as described above. Diagnostic code #3 Study was dictated in MDT
[2019-09-03] MEDS ORDERED: Sodium Chloride 0.9% 1,000 ML IV SCH ×2 (17:15→17:45)
[2019-09-03] MEDS ORDERED: Ampicillin/Sulbactam Na 1.5 GM in Sodium Chloride 0.9% 50 ML IV ONE ×2 (17:37→17:45)
--- NOTE | 2019-09-03 18:09 | PCM.CONS ---
H&P History of Present Illness - General Date of Service: 09/03/19 Admit Problem/Dx: Admission Diagnosis/Problem Admission Diagnosis/Problem Pneumonia Source of Information: Family History Limitations: Reports: Altered Mental Status (Alzheimers) - History of Present Illness Initial Comments - Free Text/Narative: Patient is an 89-year-old female, who is a resident of [facility]. She was eating lunch today and then had what sounds like a coughing or choking episode. She was brought to the emergency room with concerns of a possible foreign body obstruction of the esophagus. She had pasta for lunch. There is no mention of any meat for lunch. Since then she has been coughing. She has also been drooling incessantly. She does have a history of strokes and heart attack. She has a history of breast cancer at the age of 63. She has been in the longterm for quite some time. Onset of Symptoms: Reports: Today Location: Reports: Chest Severity: Moderate Improves with: Reports: None Worsens with: Reports: None Associated Symptoms: Reports: Cough, Other (incessant drooling) - Related Data Allergies/Adverse Reactions: Allergies Allergy/AdvReac Type Severity Reaction Status Date / Time No Known Allergies Allergy Verified 09/03/19 16:16 Home Medications: Home Meds Acetaminophen [Tylenol Extra Strength] 1,000 mg PO Q8HR PRN MDD 4000 MG 01/28/17 [History] Aspirin 81 mg PO DAILY 01/28/17 [History] Cyanocobalamin (Vitamin B-12) [Cyanocobalamin Injection] 1,000 mcg IM Q30D 01/28/17 [History] Docusate Sodium [Colace] 100 mg PO DAILY 01/28/17 [History] Donepezil HCl [Aricept] 10 mg PO DAILY 01/28/17 [History] Folic Acid 1 mg PO DAILY 01/28/17 [History] Magnesium Hydroxide [Milk of Magnesia] 30 ml PO Q72H PRN 01/28/17 [History] Acetaminophen [Tylenol Extra Strength] 500 mg PO DAILY MDD 4000 MG 01/29/17 [History] Cholecalciferol (Vitamin D3) [Vitamin D3] 1,000 units PO DAILY 01/29/17 [History] Multivitamin with Minerals [Multiple Vitamin] 1 tab PO DAILY 01/29/17 [History] Albuterol Sulfate 3 ml INH ASDIRECTED PRN 09/03/19 [History] Carbamide Peroxide [Debrox] 3 drop EARBOTH ASDIRECTED 09/03/19 [History] Menthol/Zinc Oxide [Gold Berman Medicated Body Powdr] 113 gm TOP ASDIRECTED 09/03/19 [History] Mirtazapine [Remeron] 15 mg PO DAILY 09/03/19 [History] polyethylene glycoL 3350 [MiraLAX] 17 gm PO DAILY 09/03/19 [History] Past Medical History HEENT History: Reports: None Cardiovascular History: Reports: None Respiratory History: Reports: None Gastrointestinal History: Reports: None Genitourinary History: Reports: UTI, Recurrent [employer] History: Reports: Musculoskeletal History: Reports: Osteoarthritis Other Musculoskeletal History: weakness Neurological History: Reports: Alzheimers Disease, Other (See Below) Other Neuro History: dementia Psychiatric History: Reports: Psychosis, Other (See Below) Other Psychiatric History: conversion disorder Endocrine/Metabolic History: Reports: None Hematologic History: Reports: Anemia Immunologic History: Reports: None Oncologic (Cancer) History: Reports: None Other Oncologic History: prior history of breast cancer treated with lumpectomy Dermatologic History: Reports: None - Infectious Disease History Infectious Disease History: Reports: Chicken Pox, Shingles - Past Surgical History Head Surgeries/Procedures: Reports: None HEENT Surgical History: Reports: None Cardiovascular Surgical History: Reports: None Respiratory Surgical History: Reports: None GI Surgical History: Reports: None Female Surgical History: Reports: None, Other (See Below) Neurological Surgical History: Reports: None Musculoskeletal Surgical History: Reports: None Social & Family History - Family History Family Medical History: Noncontributory - Tobacco Use Smoking Status *Q: Never Smoker - Caffeine Use Caffeine Use: Reports: None Other Caffeine Use: SHAZIA - Recreational Drug Use Recreational Drug Use: No H&P Review of Systems - Review of Systems: Review Of Systems: See Below Free Text/Narrative: Obtained from daughter. General: Reports: Malaise, Weakness. Denies: Fever, Chills Pulmonary: Reports: Cough. Denies: Shortness of Breath, Wheezing Cardiovascular: Denies: Chest Pain, Dyspnea on Exertion Gastrointestinal: Reports: Anorexia, Decreased Appetite, Difficulty Swallowing. Denies: Abdominal Pain, Constipation, Diarrhea, Distension Genitourinary: Reports: No Symptoms Musculoskeletal: Reports: No Symptoms Skin: Reports: Pallor. Denies: Cyanosis, Jaundice, Mottled, Diaphoresis Exam - Exam Exam: See Below - Vital Signs Weight: 147 lb 12.8 oz - Exam General: Alert, Mild Distress. No: Oriented, Cooperative HEENT: Conjunctiva Clear, Pupils Equal, Pupils Reactive. No: Scleral Icterus Neck: Supple Lungs: Normal Respiratory Effort, Rhonchi. No: Stridor, Wheezing Cardiovascular: Regular Rate, Regular Rhythm. No: Systolic Murmur GI/Abdominal Exam: Normal Bowel Sounds, Soft, Non-Tender, No Distention (Female) Exam: Deferred Rectal (Female) Exam: Deferred Extremities: Other (Flexion contracture left forearm and wrist) Peripheral Pulses: 3+: Posterior Tibial (L), Posterior Tibial (R), Dorsalis Pedis (L), Dorsalis Pedis (R) Skin: Warm, Dry, Intact Neuro Extensive - Mental Status: Disorientation to Person, Disorientation to Place, Disorientation to Time, Memory Loss-Remote Events, Memory Loss-Recent Events Neuro Extensive - Motor, Sensory, Reflexes: Other (wheelchair bound) - Patient Data Lab Results Last 24 hrs: Laboratory Results - last 24 hr 09/03/19 09/03/19 09/03/19 Range/Units 16:00 16:00 16:00 WBC 7.21 (4.0-11.0) K/uL RBC 4.90 (4.30-5.90) M/uL Hgb 16.5 H (12.0-16.0) g/dL Hct 47.9 H (36.0-46.0) % MCV 97.8 (80.0-98.0) fL MCH 33.7 H (27.0-32.0) pg MCHC 34.4 (31.0-37.0) g/dL RDW Std Deviation 48.9 (28.0-62.0) fl RDW Coeff of Gen 14 (11.0-15.0) % Plt Count 182 (150-400) K/uL MPV 11.80 (7.40-12.00) fL Neut % (Auto) 74.9 (48.0-80.0) % Lymph % (Auto) 17.3 (16.0-40.0) % [place] % (Auto) 6.0 (0.0-15.0) % Eos % (Auto) 1.4 (0.0-7.0) % Baso % (Auto) 0.4 (0.0-1.5) % Neut # (Auto) 5.4 (1.4-5.7) K/uL Lymph # (Auto) 1.3 (0.6-2.4) K/uL [place] # (Auto) 0.4 (0.0-0.8) K/uL Eos # (Auto) 0.1 (0.0-0.7) K/uL Baso # (Auto) 0.0 (0.0-0.1) K/uL Nucleated RBC % 0.0 /100WBC Nucleated RBCs # 0 K/uL Lactate 1.7 (0.20-2.00) mmol/L Sodium 141 (136-145) mmol/L Potassium 3.9 (3.5-5.1) mmol/L Chloride 103 (98-107) mmol/L Carbon Dioxide 28.0 (21.0-32.0) mmol/L BUN 12 (7.0-18.0) mg/dL Creatinine 0.9 (0.6-1.0) mg/dL Est Cr Clr Drug Dosing 40.45 mL/min Estimated GFR (MDRD) 59.1 ml/min Glucose 141 H (74-106) mg/dL Calcium 9.6 (8.5-10.1) mg/dL Total Bilirubin 0.4 (0.2-1.0) mg/dL AST 22 (15-37) IU/L ALT 20 (14-63) IU/L Alkaline Phosphatase 67 (46-116) U/L Total Protein 7.6 (6.4-8.2) g/dL Albumin 3.9 (3.4-5.0) g/dL Globulin 3.7 (2.6-4.0) g/dL Albumin/Globulin Ratio 1.1 (0.9-1.6) Result Diagrams: 09/03/19 16:00 09/03/19 16:00 Sepsis Event Note - Evaluation Sepsis Screening Result: No Definite Risk - Focused Exam Date Exam was Performed: 09/03/19 Time Exam was Performed: 18:04 Consult PN Assessment/Plan Procedures: Procedures AIRWAY INHALATION TREATMENT (01/28/17) ASSAY OF LACTIC ACID (01/28/17) ASSAY OF MAGNESIUM (01/28/17) ASSAY OF TROPONIN QUANT (01/28/17) ASSAY THYROID STIM HORMONE (01/28/17) BLOOD CULTURE FOR BACTERIA (01/28/17) CHEST X-RAY 1 VIEW FRONTAL (01/28/17) COMPLETE CBC AUTOMATED (03/27/19) COMPLETE CBC W/AUTO DIFF WBC (01/28/17) COMPREHEN METABOLIC PANEL (03/27/19) CT ABD & PELVIS W/O CONTRAST (01/28/17) CT HEAD/BRAIN W/O DYE (01/28/17) CULTURE SCREEN ONLY (03/27/19) ELECTROCARDIOGRAM TRACING (01/28/17) EMERGENCY DEPT VISIT (03/27/19) EMERGENCY DEPT VISIT (01/28/17) INFLUENZA ASSAY W/OPTIC (03/27/19) METABOLIC PANEL TOTAL CA (01/28/17) MICROBE SUSCEPTIBLE USHA (04/05/19) ROUTINE VENIPUNCTURE (03/27/19) STREP A ASSAY W/OPTIC (03/27/19) URINALYSIS AUTO W/SCOPE (04/05/19) URINE BACTERIA CULTURE (04/05/19) URINE CULTURE/COLONY COUNT (04/05/19) X-RAY EXAM CHEST 1 VIEW (03/27/19) (1) Aspiration pneumonitis SNOMED Code(s): 576493116 Code(s): J69.0 - PNEUMONITIS DUE TO INHALATION OF FOOD AND VOMIT Current Visit: Yes (2) Stroke SNOMED Code(s): 117116697 Code(s): I63.9 - CEREBRAL INFARCTION, UNSPECIFIED Priority: Low Current Visit: Yes Qualifiers: CVA mechanism: unspecified Qualified Code(s): I63.9 - Cerebral infarction, unspecified (3) Coronary artery disease SNOMED Code(s): 12659604 Code(s): I25.10 - ATHSCL HEART DISEASE OF [place] CORONARY ARTERY W/O ANG PCTRS Priority: Low Current Visit: Yes (4) Do not resuscitate Current Visit: No (5) Dementia SNOMED Code(s): 25367194 Code(s): F03.90 - UNSPECIFIED DEMENTIA WITHOUT BEHAVIORAL DISTURBANCE Priority: Medium Current Visit: No Qualifiers: Dementia type: Alzheimer's disease Alzheimer's disease onset: late-onset Problem List Initiated/Reviewed/Updated: Yes My Orders Last 24 Hours: I suspect this is more of an aspiration picture rather than a foreign body obstruction. Daughter states patient is a DNR and would not want any heroic measures. At this point I would treat very conservatively. She could have sips of water tonight and if she tolerates that, it would speak against a FB obstruction of the esophagus. I have spoken with Dr. Perez who will cover in my absence.
--- NOTE | 2019-09-03 18:35 | PCM.HP.2 ---
H&P History of Present Illness - General Date of Service: 09/03/19 Admit Problem/Dx: Admission Diagnosis/Problem Admission Diagnosis/Problem Pneumonia Source of Information: Family, Care Home Records History Limitations: Reports: Altered Mental Status - History of Present Illness Initial Comments - Free Text/Narative: Patient is a 89-year-old female, fdc patient, presenting today with concerns about aspiration of a foreign body. Daughter mentions pt. was eating lunch at her usual time, when resident care caretakers noticed that she was having increasing coughing and choking spells. Pasta was given during lunch and it was reported no meat was part of the meal. Patient at baseline does have a past medical history of stroke/TIA, coronary artery disease, multiple UTIs and moderate to severe dementia. Due to increasing gurgling sounds appreciated in the upper chest, audible without stethoscope, patient was brought to the ED. ED course: SUrgery consultation regarding FB; Daughter however states pt. is DNR/DNI, and will most likely not tolerate and scoping procedure. Low suspicion for retained FB as Sats improved; upper airway sounds are still appreciable. - Related Data Allergies/Adverse Reactions: Allergies Allergy/AdvReac Type Severity Reaction Status Date / Time No Known Allergies Allergy Verified 09/03/19 18:54 Home Medications: Home Meds Acetaminophen [Tylenol Extra Strength] 1,000 mg PO Q8HR PRN MDD 4000 MG 01/28/17 [History] Aspirin 81 mg PO DAILY 01/28/17 [History] Cyanocobalamin (Vitamin B-12) [Cyanocobalamin Injection] 1,000 mcg IM Q30D 1 03/30/16 [History] Docusate Sodium [Colace] 100 mg PO DAILY 01/28/17 [History] Donepezil HCl [Aricept] 10 mg PO DAILY 01/28/17 [History] Folic Acid 1 mg PO DAILY 01/28/17 [History] Magnesium Hydroxide [Milk of Magnesia] 30 ml PO Q72H PRN 01/28/17 [History] Acetaminophen [Tylenol Extra Strength] 500 mg PO DAILY MDD 4000 MG 01/29/17 [History] Cholecalciferol (Vitamin D3) [Vitamin D3] 1,000 units PO DAILY 01/29/17 [History] Multivitamin with Minerals [Multiple Vitamin] 1 tab PO DAILY 01/29/17 [History] Albuterol Sulfate 3 ml INH ASDIRECTED PRN 09/03/19 [History] Carbamide Peroxide [Debrox] 3 drop EARBOTH ASDIRECTED 09/03/19 [History] Menthol/Zinc Oxide [Gold Berman Medicated Body Powdr] 113 gm TOP ASDIRECTED 09/03/19 [History] Mirtazapine [Remeron] 15 mg PO DAILY 09/03/19 [History] polyethylene glycoL 3350 [MiraLAX] 17 gm PO DAILY 09/03/19 [History] Past Medical History HEENT History: Reports: None Cardiovascular History: Reports: None Respiratory History: Reports: None Gastrointestinal History: Reports: None Genitourinary History: Reports: UTI, Recurrent CLEANERS History: Reports: Musculoskeletal History: Reports: Osteoarthritis Other Musculoskeletal History: weakness Neurological History: Reports: Alzheimers Disease, Other (See Below) Other Neuro History: dementia Psychiatric History: Reports: Psychosis, Other (See Below) Other Psychiatric History: conversion disorder Endocrine/Metabolic History: Reports: None Hematologic History: Reports: Anemia Immunologic History: Reports: None Oncologic (Cancer) History: Reports: None Other Oncologic History: prior history of breast cancer treated with lumpectomy Dermatologic History: Reports: None - Infectious Disease History Infectious Disease History: Reports: Chicken Pox, Shingles - Past Surgical History Head Surgeries/Procedures: Reports: None HEENT Surgical History: Reports: None Cardiovascular Surgical History: Reports: None Respiratory Surgical History: Reports: None GI Surgical History: Reports: None Female Surgical History: Reports: None, Other (See Below) Neurological Surgical History: Reports: None Musculoskeletal Surgical History: Reports: None Social & Family History - Family History Family Medical History: Noncontributory - Tobacco Use Smoking Status *Q: Never Smoker - Caffeine Use Caffeine Use: Reports: None Other Caffeine Use: SHAZIA - Recreational Drug Use Recreational Drug Use: No H&P Review of Systems - Review of Systems: Review Of Systems: Comprehensive ROS is negative, except as noted in HPI. Reason Not Obtained: moderate-sever dementia: does not speak and or ambualte/baseline General: Reports: Other. Denies: Fever, Chills Exam - Exam Exam: See Below - Vital Signs Vital Signs: Last Vital Signs Temp Pulse 100 09/03/19 17:20 Resp BP Pulse Ox 90 L 09/03/19 17:20 Weight: 67.041 kg - Exam Quality Assessment: Supplemental Oxygen (removes ansal canula ) General: Other. No: Alert, Oriented, Cooperative HEENT: EOMI Lungs: Other (increasing upper airway sounds/gurgling. BS apprecaited but gurgling overlay is noticible ) Cardiovascular: Regular Rate, Regular Rhythm GI/Abdominal Exam: Soft Extremities: Other (skin hosing in place to help prevent skin breakdown; no acute signs of infection appreciated ) Skin: Warm Neurological: Other (right arm/wrsit spasms/contracture ) Neuro Extensive - Mental Status: No: Alert, Oriented x3, Normal Cognition Neuro Extensive - Motor, Sensory, Reflexes: No: Normal Gait, Normal Reflexes Psychiatric: No: Alert - Patient Data Lab Results Last 24 hrs: Laboratory Results - last 24 hr 09/03/19 09/03/19 09/03/19 Range/Units 16:00 16:00 16:00 WBC 7.21 (4.0-11.0) K/uL RBC 4.90 (4.30-5.90) M/uL Hgb 16.5 H (12.0-16.0) g/dL Hct 47.9 H (36.0-46.0) % MCV 97.8 (80.0-98.0) fL MCH 33.7 H (27.0-32.0) pg MCHC 34.4 (31.0-37.0) g/dL RDW Std Deviation 48.9 (28.0-62.0) fl RDW Coeff of Gen 14 (11.0-15.0) % Plt Count 182 (150-400) K/uL MPV 11.80 (7.40-12.00) fL Neut % (Auto) 74.9 (48.0-80.0) % Lymph % (Auto) 17.3 (16.0-40.0) % [place] % (Auto) 6.0 (0.0-15.0) % Eos % (Auto) 1.4 (0.0-7.0) % Baso % (Auto) 0.4 (0.0-1.5) % Neut # (Auto) 5.4 (1.4-5.7) K/uL Lymph # (Auto) 1.3 (0.6-2.4) K/uL [place] # (Auto) 0.4 (0.0-0.8) K/uL Eos # (Auto) 0.1 (0.0-0.7) K/uL Baso # (Auto) 0.0 (0.0-0.1) K/uL Nucleated RBC % 0.0 /100WBC Nucleated RBCs # 0 K/uL Lactate 1.7 (0.20-2.00) mmol/L Sodium 141 (136-145) mmol/L Potassium 3.9 (3.5-5.1) mmol/L Chloride 103 (98-107) mmol/L Carbon Dioxide 28.0 (21.0-32.0) mmol/L BUN 12 (7.0-18.0) mg/dL Creatinine 0.9 (0.6-1.0) mg/dL Est Cr Clr Drug Dosing 40.45 mL/min Estimated GFR (MDRD) 59.1 ml/min Glucose 141 H (74-106) mg/dL Calcium 9.6 (8.5-10.1) mg/dL Total Bilirubin 0.4 (0.2-1.0) mg/dL AST 22 (15-37) IU/L ALT 20 (14-63) IU/L Alkaline Phosphatase 67 (46-116) U/L Total Protein 7.6 (6.4-8.2) g/dL Albumin 3.9 (3.4-5.0) g/dL Globulin 3.7 (2.6-4.0) g/dL Albumin/Globulin Ratio 1.1 (0.9-1.6) Result Diagrams: 09/03/19 16:00 09/03/19 16:00 Sepsis Event Note - Evaluation Sepsis Screening Result: No Definite Risk - Focused Exam Vital Signs: Vital Signs Pulse Pulse Ox 09/03/19 17:20 100 90 L Date Exam was Performed: 09/03/19 Time Exam was Performed: 19:04 Problem List Initiated/Reviewed/Updated: Yes Orders Last 24hrs: Active Orders 24 hr Category Date Time Status Admission Status [Patient Status] [ADT] Stat ADT 09/03/19 17:07 Active Bedrest [RC] ASDIRECTED Care 09/03/19 18:31 Ordered Cardiac Monitoring [RC] . DIRECTED Care 09/03/19 17:32 Active Communication Order [RC] STAT Care 09/03/19 16:04 Active RT Aerosol Therapy [RC] ASDIRECTED Care 09/03/19 16:04 Active Telemetry Monitoring [Cardiac Monitoring] [RC] . Care 09/03/19 18:10 Active DIRECTED Vital Signs [RC] PER UNIT ROUTINE Care 09/03/19 18:30 Ordered Clear Liquid Diet [DIET] Diet 09/03/19 Dinner Active NPO After Midnight [Nothing per Oral After Midnight Diet 09/04/19 Breakfast Ordered Diet] [DIET] CULTURE BLOOD [BC] Stat Lab 09/03/19 16:00 Received CULTURE BLOOD [BC] Stat Lab 09/03/19 16:26 Received UA RFX USHA AND CULT IF INDIC [URIN] Stat Lab 09/03/19 15:36 Ordered Sodium Chloride 0.9% [Normal Saline] 1,000 ml Med 09/03/19 17:45 Active IV ASDIRECTED Sodium Chloride 0.9% [Saline Flush] Med 09/03/19 15:36 Active 10 ml FLUSH ASDIRECTED PRN Sodium Chloride 0.9% [Saline Flush] Med 09/03/19 15:36 Active 2.5 ml FLUSH ASDIRECTED PRN Blood Culture x2 Reflex Set [OM.PC] Stat Oth 09/03/19 15:36 Ordered Saline Lock Insert [OM.PC] Stat Oth 09/03/19 15:36 Ordered Medication Orders Sodium Chloride (Normal Saline) 1,000 mls @ 125 mls/hr IV ASDIRECTED PEPITO Sodium Chloride (Saline Flush) 10 ml FLUSH ASDIRECTED PRN PRN Reason: Keep Vein Open Sodium Chloride (Saline Flush) 2.5 ml FLUSH ASDIRECTED PRN PRN Reason: Keep Vein Open Assessment/Plan Comment:: Assessment: 1. Concerns for aspiration pneumonia 2. Previous history of Stroke 3. Moderate to severe Dementia 4. PMH: Stroke, CAD, Multiple UTI, hx. of breast cancer Plan Admit to obs. DNR/DNI. Vitals per routine. Bedrest. CLear liquids till midnight. NPO at midnight I/o's per routine NS IV 125/hr 1. Discussed case w. Surgery; low suspicion for FB; however; per patient daughter, would like to avoid any procedures, including an EGD; perihialr bronchiitis + increasing upper airway gurgling: will treat for poss. aspiration Pneumonia w. Unasyn. Vitals stable and o2 sat improving; pt however not tolerating NC and removes any supplemental o2. Discussed plan with daughter for admission, monitoring, and to consult Speech for a swallow evaluation in the AM. Daughter agreed and mentioned will not consider any PEG tubes or other forms of aggressive treatment. Will consider palliative/hospice care consult; daughter agreed but would like to contact family and a palliative provider known to her. Will continue to monitor overnight. Ativan for agitation PRN q6hrs
[2019-09-03] MEDS: Sodium Chloride 0.9% 1,000 ML IV SCH (18:38)
[2019-09-03] MEDS ORDERED: LORazepam 2 MG/ML SDV IVPUSH PRN (19:01)
[2019-09-03] MEDS ORDERED: Ondansetron 4 MG/2 ML SDV IVPUSH PRN (19:11)
[2019-09-03] MEDS ORDERED: Metoprolol Tartrate 5 MG/5 ML SDV IVPUSH PRN (19:13)
[2019-09-03] MEDS ORDERED: Magnesium Hydroxide 400 MG/5 ML Susp 30 ML Cup PO PRN (19:22)
[2019-09-03] MEDS ORDERED: Polyethylene Glycol 3350 Powder 17 GM Packet PO PRN (19:22)
[2019-09-03] MEDS ORDERED: Acetaminophen 500 MG Tab PO PRN (19:22)
[2019-09-03] MEDS: Donepezil 10 MG Tab PO SCH (21:32)
[2019-09-03] MEDS: Mirtazapine 15 MG Tab PO SCH (21:32)
[2019-09-04] MEDS: Sodium Chloride 0.9% 1,000 ML IV SCH ×3 (03:00→23:49)
--- NOTE | 2019-09-04 08:48 | PCM.PN ---
- General Info Date of Service: 09/04/19 Subjective Update: Bedside: no acute distress. - Review of Systems Systems Review Comment:: No ROS secondary to moderate-sever dementia; non-verbal ; awaiting speech evaluation for swallow study - Patient Data Vitals - Most Recent: Last Vital Signs Temp 98.4 F 09/04/19 07:40 Pulse 84 09/04/19 07:40 Resp 17 09/04/19 07:40 BP 138/61 09/04/19 07:40 Pulse Ox 91 L 09/04/19 07:40 Weight - Most Recent: 67.041 kg I&O - Last 24 Hours: Intake & Output 09/03/19 09/04/19 09/04/19 22:59 06:59 14:59 Intake Total 50 1120 Balance 50 1120 Lab Results Last 24 Hours: Laboratory Results - last 24 hr 09/03/19 09/03/19 09/03/19 Range/Units 16:00 16:00 16:00 WBC 7.21 (4.0-11.0) K/uL RBC 4.90 (4.30-5.90) M/uL Hgb 16.5 H (12.0-16.0) g/dL Hct 47.9 H (36.0-46.0) % MCV 97.8 (80.0-98.0) fL MCH 33.7 H (27.0-32.0) pg MCHC 34.4 (31.0-37.0) g/dL RDW Std Deviation 48.9 (28.0-62.0) fl RDW Coeff of Gen 14 (11.0-15.0) % Plt Count 182 (150-400) K/uL MPV 11.80 (7.40-12.00) fL Neut % (Auto) 74.9 (48.0-80.0) % Lymph % (Auto) 17.3 (16.0-40.0) % Sierra % (Auto) 6.0 (0.0-15.0) % Eos % (Auto) 1.4 (0.0-7.0) % Baso % (Auto) 0.4 (0.0-1.5) % Neut # (Auto) 5.4 (1.4-5.7) K/uL Lymph # (Auto) 1.3 (0.6-2.4) K/uL Sierra # (Auto) 0.4 (0.0-0.8) K/uL Eos # (Auto) 0.1 (0.0-0.7) K/uL Baso # (Auto) 0.0 (0.0-0.1) K/uL Nucleated RBC % 0.0 /100WBC Nucleated RBCs # 0 K/uL Lactate 1.7 (0.20-2.00) mmol/L Sodium 141 (136-145) mmol/L Potassium 3.9 (3.5-5.1) mmol/L Chloride 103 (98-107) mmol/L Carbon Dioxide 28.0 (21.0-32.0) mmol/L BUN 12 (7.0-18.0) mg/dL Creatinine 0.9 (0.6-1.0) mg/dL Est Cr Clr Drug Dosing 40.45 mL/min Estimated GFR (MDRD) 59.1 ml/min Glucose 141 H (74-106) mg/dL Calcium 9.6 (8.5-10.1) mg/dL Total Bilirubin 0.4 (0.2-1.0) mg/dL AST 22 (15-37) IU/L ALT 20 (14-63) IU/L Alkaline Phosphatase 67 (46-116) U/L Total Protein 7.6 (6.4-8.2) g/dL Albumin 3.9 (3.4-5.0) g/dL Globulin 3.7 (2.6-4.0) g/dL Albumin/Globulin Ratio 1.1 (0.9-1.6) Med Orders - Current: Current Medications Acetaminophen (Tylenol Extra Strength) 1,000 mg PO Q8H PRN PRN Reason: Pain Aspirin (Aspirin) 81 mg PO DAILY [facility] Docusate Sodium (Colace) 100 mg PO DAILY [facility] Donepezil HCl (Aricept) 10 mg PO BEDTIME [facility] Last Admin: 09/03/19 21:32 Dose: 10 mg Documented by: Sodium Chloride (Normal Saline) 1,000 mls @ 125 mls/hr IV ASDIRECTED [facility] Last Admin: 09/04/19 03:00 Dose: 125 mls/hr Documented by: Lorazepam (Ativan) 1 mg IVPUSH Q6H PRN PRN Reason: Agitation Magnesium Hydroxide (Milk Of Magnesia) 30 ml PO Q72H PRN PRN Reason: Constipation Mirtazapine (Remeron) 15 mg PO BEDTIME [facility] Last Admin: 09/03/19 21:32 Dose: 15 mg Documented by: Ondansetron HCl (Zofran) 4 mg IVPUSH Q4H PRN PRN Reason: Nausea/Vomiting Polyethylene Glycol (Miralax) 17 gm PO DAILY [facility] Polyethylene Glycol (Miralax) 17 gm PO DAILY PRN PRN Reason: Constipation Sodium Chloride (Saline Flush) 10 ml FLUSH ASDIRECTED PRN PRN Reason: Keep Vein Open Sodium Chloride (Saline Flush) 2.5 ml FLUSH ASDIRECTED PRN PRN Reason: Keep Vein Open Discontinued Medications Albuterol/Ipratropium (Duoneb 3.0-0.5 Mg/3 Ml) 3 ml NEB ONETIME ONE Stop: 09/03/19 16:05 Last Admin: 09/03/19 16:23 Dose: 3 ml Documented by: Sodium Chloride (Normal Saline) 1,000 mls @ 125 mls/hr IV ASDIRECTED [facility] Sodium Chloride (Normal Saline) 1,000 mls @ 125 mls/hr IV ASDIRECTED [facility] Ampicillin Sodium/Sulbactam (Sodium 1.5 gm/ Sodium Chloride) 50 mls @ 150 mls/hr IV ONETIME ONE Stop: 09/03/19 17:56 Last Admin: 09/03/19 20:49 Dose: Not Given Documented by: Ampicillin Sodium/Sulbactam (Sodium 1.5 gm/ Sodium Chloride) 50 mls @ 150 mls/hr IV ONETIME ONE Stop: 09/03/19 18:04 Last Admin: 09/03/19 19:24 Dose: 150 mls/hr Documented by: Metoprolol Tartrate (Lopressor) 2.5 mg IVPUSH ONETIME PRN PRN Reason: Hypertension - Exam Quality Assessment: No: Supplemental Oxygen General: Alert, No Acute Distress Lungs: Other (increased upper airway gurlgling sounds ) GI/Abdominal Exam: Soft Neurological: No: Normal Speech Psy/Mental Status: Alert Sepsis Event Note - Evaluation Sepsis Screening Result: No Definite Risk - Focused Exam Vital Signs: Vital Signs Temp Pulse Resp BP Pulse Ox 09/04/19 07:40 98.4 F 84 17 138/61 91 L 09/04/19 04:11 99 F 88 17 152/67 H 94 L 09/04/19 00:00 99 F 90 17 150/65 H 93 L Date Exam was Performed: 09/04/19 Time Exam was Performed: 12:28 - Problem List Review Problem List Initiated/Reviewed/Updated: Yes - My Orders Last 24 Hours: My Active Orders 09/03/19 Dinner Clear Liquid Diet [DIET] 09/03/19 18:30 Vital Signs [RC] Q4H 09/03/19 18:31 Bedrest [RC] ASDIRECTED 09/03/19 18:49 Code Status [Resuscitation Status] Routine 09/03/19 19:01 LORazepam [Ativan] 1 mg IVPUSH Q6H PRN 09/03/19 19:11 Ondansetron [Zofran] 4 mg IVPUSH Q4H PRN 09/03/19 19:22 Acetaminophen [Tylenol Extra Strength] 1,000 mg PO Q8H PRN Magnesium Hydroxide [Milk of Magnesia] 30 ml PO Q72H PRN polyethylene glycoL 3350 [MiraLAX] 17 gm PO DAILY PRN 09/03/19 21:00 Donepezil [Aricept] 10 mg PO BEDTIME Mirtazapine [Remeron] 15 mg PO BEDTIME 09/04/19 Breakfast NPO After Midnight [Nothing per Oral After Midnight Diet] [DIET] 09/04/19 09:00 Aspirin 81 mg PO DAILY Docusate Sodium [Colace] 100 mg PO DAILY polyethylene glycoL 3350 [MiraLAX] 17 gm PO DAILY - Plan Plan:: Assessment: 1. Concerns for aspiration pneumonia 2. Previous history of Stroke 3. Moderate to severe Dementia 4. PMH: Stroke, CAD, Multiple UTI, hx. of breast cancer Plan Admit to obs. DNR/DNI. Vitals per routine. Bedrest. CLear liquids till midnight. NPO at midnight I/o's per routine NS IV 125/hr 1. Discussed case w. Surgery; low suspicion for FB; however; per patient daughter, would like to avoid any procedures, including an EGD; perihilar bronchitis + increasing upper airway gurgling: will treat for poss. aspiration Pneumonia w. Unasyn. Vitals stable and o2 sat improving; pt however not tolerating NC and removes any supplemental o2. Discussed plan with daughter for admission, monitoring, and to consult Speech for a swallow evaluation in the AM. : recommended Pureed /thin liquid for now; can reassess if not tolerating or increase coughing; we appreciate ST for there assistance Atropine for secretions Daughter agreed and mentioned will not consider any PEG tubes or other forms of aggressive treatment. Will consider palliative/hospice care consult; daughter agreed but would like to contact family and a palliative provider known to her. Ativan for agitation PRN q6hrs
[2019-09-04] MEDS ORDERED: Atropine 1% Ophth Soln 5 ML BOTTLE SL PRN (10:12)
[2019-09-04] MEDS: Aspirin 81 MG Tab.Chew PO SCH (10:18)
[2019-09-04] MEDS: Polyethylene Glycol 3350 Powder 17 GM Packet PO SCH (10:18)
[2019-09-04] MEDS: Docusate Sodium 100 MG Cap PO SCH (10:18)
[2019-09-04] MEDS: Donepezil 10 MG Tab PO SCH ×2 (20:48→21:42)
[2019-09-04] MEDS: Mirtazapine 15 MG Tab PO SCH ×2 (20:48→21:42)
--- NOTE | 2019-09-05 09:22 | PCM.DCSUM1 ---
Discharge Summary - Hospital Course Brief History: Patient is a 89-year-old female, [facility] patient, presenting today with concerns about aspiration of a foreign body. Daughter mentions pt. was eating lunch at her usual time, when resident care caretakers noticed that she was having increasing coughing and choking spells. Pasta was given during lunch and it was reported no meat was part of the meal. Patient at baseline does have a past medical history of stroke/TIA, coronary artery disease, multiple UTIs and moderate to severe dementia. Due to increasing gurgling sounds appreciated in the upper chest, audible without stethoscope, patient was brought to the ED. ED course: SUrgery consultation regarding FB;. Daughter however states pt. is DNR/DNI, and will most likely not tolerate and scoping procedure. Low suspicion for retained FB as Sats improved; upper airway sounds are still appreciable. Diagnosis: Stroke: No - Discharge Data Discharge Date: 09/05/19 Discharge Disposition: DC/Tfer to Hospice[facility] Condition: Stable - Referral to Home Health Primary Care Physician: Matt Arreguin MD - Patient Summary/Data Consults: Consultations 09/03/19 22:30 Consult to Speech Language Pathology [DRAMA PROFESSOR Evaluation and Treatment] [CONS] Routine 09/04/19 10:12 Consult to Hospice [CONS] Routine Hospital Course: Admitting Diagnoses: Possible aspiration Discharge Diagnoses: Palliative care/Hospice Patricia was admitted after having choking and possible aspiration at [place]. Improvement was noted in the ED, no suspicion for obstruction with foreign body. She was kept on palliative care. Daughter spoke with remainder of family and Hospice. They feel Hospice is most appropriate for Patricia as she is end stage dementia. She will be transferred to [place] today with Hospice to admit when she arrives there. Medications per Hospice. - Patient Instructions Diet: Pureed (thin liquids, meds crushed with applesauce) Activity: As Tolerated Showering/Bathing: May Shower Notify Provider of: Fever, Increased Pain, Swelling and Redness, Drainage, Nausea and/or Vomiting Other/Special Instructions: Hospice to admit at [place], medications per Hospice. - Discharge Plan *PRESCRIPTION DRUG MONITORING PROGRAM REVIEWED*: Not Applicable *COPY OF PRESCRIPTION DRUG MONITORING REPORT IN PATIENT ZAN: Not Applicable Home Medications: Home Meds Donepezil HCl [Aricept] 10 mg PO BEDTIME 01/28/17 [History] Acetaminophen [Tylenol Extra Strength] 500 mg PO DAILY MDD 4000 MG 01/29/17 [History] Menthol/Zinc Oxide [Gold Berman Medicated Body Powdr] 113 gm TOP ASDIRECTED PRN 09/03/19 [History] Mirtazapine [Remeron] 15 mg PO BEDTIME 09/03/19 [History] Albuterol Sulfate 3 ml INH Q4H PRN #0 09/05/19 [Rx] Oxygen Therapy Mode: Room Air Patient Handouts: Aspiration Pneumonia, Coronary Artery Disease, Female Referrals: Matt Arreguin MD [Primary Care Provider] - - Discharge Summary/Plan Comment DC Time >30 min.: No - Patient Data Vitals - Most Recent: Last Vital Signs Temp 98.1 F 09/05/19 03:00 Pulse 66 09/05/19 03:00 Resp 16 09/05/19 03:00 BP 128/57 L 09/05/19 03:00 Pulse Ox 96 09/05/19 03:00 Weight - Most Recent: 67.041 kg I&O - Last 24 hours: Intake & Output 09/04/19 09/05/19 09/05/19 22:59 06:59 14:59 Intake Total 210 911 Balance 210 911 USHA Results - Last 24 hrs: Microbiology 09/03/19 16:26 Aerobic Blood Culture - Preliminary Blood - Venous - Lab Draw NO GROWTH AFTER 1 DAY Anaerobic Blood Culture - Preliminary NO GROWTH AFTER 1 DAY 09/03/19 16:00 Aerobic Blood Culture - Preliminary Blood - Venous NO GROWTH AFTER 1 DAY Anaerobic Blood Culture - Preliminary NO GROWTH AFTER 1 DAY Med Orders - Current: Current Medications Acetaminophen (Tylenol Extra Strength) 1,000 mg PO Q8H PRN PRN Reason: Pain Aspirin (Aspirin) 81 mg PO DAILY [facility] Last Admin: 09/04/19 10:18 Dose: Not Given Documented by: Atropine Sulfate (Atropine 1% Ophth Soln) 0 ml SL Q2H PRN PRN Reason: Secretions Last Admin: 09/04/19 18:20 Dose: 5 ml Documented by: Docusate Sodium (Colace) 100 mg PO DAILY [facility] Last Admin: 09/04/19 10:18 Dose: Not Given Documented by: Donepezil HCl (Aricept) 10 mg PO BEDTIME [facility] Last Admin: 09/04/19 21:42 Dose: Not Given Documented by: Sodium Chloride (Normal Saline) 1,000 mls @ 75 mls/hr IV Q13H [facility] Last Admin: 09/04/19 23:49 Dose: 75 mls/hr Documented by: Lorazepam (Ativan) 1 mg IVPUSH Q6H PRN PRN Reason: Agitation Magnesium Hydroxide (Milk Of Magnesia) 30 ml PO Q72H PRN PRN Reason: Constipation Mirtazapine (Remeron) 15 mg PO BEDTIME [facility] Last Admin: 09/04/19 21:42 Dose: Not Given Documented by: Ondansetron HCl (Zofran) 4 mg IVPUSH Q4H PRN PRN Reason: Nausea/Vomiting Polyethylene Glycol (Miralax) 17 gm PO DAILY [facility] Last Admin: 09/04/19 10:18 Dose: Not Given Documented by: Polyethylene Glycol (Miralax) 17 gm PO DAILY PRN PRN Reason: Constipation Sodium Chloride (Saline Flush) 2.5 ml FLUSH ASDIRECTED PRN PRN Reason: Keep Vein Open Discontinued Medications Albuterol/Ipratropium (Duoneb 3.0-0.5 Mg/3 Ml) 3 ml NEB ONETIME ONE Stop: 09/03/19 16:05 Last Admin: 09/03/19 16:23 Dose: 3 ml Documented by: Sodium Chloride (Normal Saline) 1,000 mls @ 125 mls/hr IV ASDIRECTED [facility] Sodium Chloride (Normal Saline) 1,000 mls @ 125 mls/hr IV ASDIRECTED [facility] Sodium Chloride (Normal Saline) 1,000 mls @ 125 mls/hr IV ASDIRECTED [facility] Last Admin: 09/04/19 03:00 Dose: 125 mls/hr Documented by: Ampicillin Sodium/Sulbactam (Sodium 1.5 gm/ Sodium Chloride) 50 mls @ 150 mls/hr IV ONETIME ONE Stop: 09/03/19 17:56 Last Admin: 09/03/19 20:49 Dose: Not Given Documented by: Ampicillin Sodium/Sulbactam (Sodium 1.5 gm/ Sodium Chloride) 50 mls @ 150 mls/hr IV ONETIME ONE Stop: 09/03/19 18:04 Last Admin: 09/03/19 19:24 Dose: 150 mls/hr Documented by: Metoprolol Tartrate (Lopressor) 2.5 mg IVPUSH ONETIME PRN PRN Reason: Hypertension Sodium Chloride (Saline Flush) 10 ml FLUSH ASDIRECTED PRN PRN Reason: Keep Vein Open - Exam General: Reports: Alert (non verbal) Lungs: Reports: Clear to Auscultation, Normal Respiratory Effort Cardiovascular: Reports: Regular Rate, Regular Rhythm GI/Abdominal Exam: Normal Bowel Sounds, Soft, Non-Tender Neurological: Reports: No New Focal Deficit Psy/Mental Status: Reports: Alert
[2019-09-05] MEDS: Aspirin 81 MG Tab.Chew PO SCH (10:03)
[2019-09-05] MEDS: Docusate Sodium 100 MG Cap PO SCH (10:05)
[2019-09-05] MEDS: Polyethylene Glycol 3350 Powder 17 GM Packet PO SCH (10:05)
== END 2019-09-05 13:00 | disposition hospice, inpatient (51) ==
LOC: MW.ED 15:18 → MW.MS 17:07
PROVIDERS: ADMIT Student in an Organized Health Care Education/Training Program; ATTEND Student in an Organized Health Care Education/Training Program
DX: G30.9 Alzheimer's disease, unspecified (principal); F02.80 Dementia in other diseases classified elsewhere, unspecified severity, without behavioral disturbance, psychotic disturbance, mood disturbance, and anxiety; Z51.5 Encounter for palliative care; Z66 Do not resuscitate; R09.89 Other specified symptoms and signs involving the circulatory and respiratory systems; I25.10 Atherosclerotic heart disease of native coronary artery without angina pectoris; D64.9 Anemia, unspecified; M81.0 Age-related osteoporosis without current pathological fracture; Z20.828 Contact with and (suspected) exposure to other viral communicable diseases; Z79.899 Other long term (current) drug therapy; Z86.73 Personal history of transient ischemic attack (TIA), and cerebral infarction without residual deficits; Z79.82 Long term (current) use of aspirin; Z98.890 Other specified postprocedural states; Z87.440 Personal history of urinary (tract) infections; Z85.3 Personal history of malignant neoplasm of breast
CPT/HCPCS: 71045; 71045-26; 80053; 83605; 85025; 87040; 92610-GN; 94640; 96361; 96365; 99284; 99285-25; A9270-GY; G0378; J0295; J7030; J7050; J7620-GY; U0002